=== PATIENT | female | born 1935 | race Caucasian/White ===

== ENCOUNTER 2018-06-30 20:22 | Observation (INO) ==
[2018-06-30] MEDS ORDERED: *HR* HYDROcodone/Acet 5/325 mg TABLET PO ONE (21:01)
[2018-06-30] MEDS ORDERED: Tdap (Boostrix) Vaccine 0.5 ML SYRINGE IM ONE (21:02)
--- NOTE | 2018-06-30 21:16 | Emergency Department Note ---
Disposition Clinical Impression: Knee fracture, left Shoulder pain Qualifiers: Chronicity: acute Laterality: left Qualified Code(s): M25.512 - Pain in left shoulder Knee pain, left Qualifiers: Chronicity: acute Qualified Code(s): M25.562 - Pain in left knee Fall Qualifiers: Encounter type: initial encounter Qualified Code(s): W19.XXXA - Unspecified fall, initial encounter Humerus head fracture Qualifiers: Encounter type: initial encounter Fracture type: closed Laterality: left Qualified Code(s): S42.292A - Other displaced fracture of upper end of left ashvin brittanie, initial encounter for closed fracture Disposition: Admitted As Inpatient Condition: Fair Time of Disposition: 22:48 General Adult HPI - General Chief complaint: ED Fall Stated complaint: Left leg/shoulder Pain Time Seen by Provider: 06/30/18 20:24 Source: family, EMS Mode of arrival: EMS Limitations: no limitations Nursing Notes Reviewed: Yes Vital Signs Reviewed: Yes - History of Present Illness HPI Narrative: 83-year-old female presents for evaluation after mechanical fall. Patient states she fell down a proximally 2 stairs. Patient was outside. Patient denies any LOC. Patient denies any head injury. States that she is complaining of left knee and left shoulder pain. Patient was not able to ambulate following the injury. Denies any chest pain. No abdominal pain. No back or neck pain. No nausea or vomiting. Patient denies being any blood thinners. States she does have a history of coronary artery disease. States she takes it aspirin. Denies any Plavix. Pain Scale: 8 - Related Data Home Medications Medication Instructions Recorded Confirmed Aspirin Enteric Coated [Aspirin EC] 81 mg PO DAILY 04/15/15 06/11/18 Metoprolol [Lopressor] 12.5 mg PO BID 04/15/15 06/11/18 amLODIPine [Norvasc] 2.5 mg PO BID 10/05/16 06/11/18 Previous Rx's Medication Instructions Recorded Ibuprofen [Motrin] 600 mg PO TID PRN #10 tablet 07/15/15 Diphenoxylate/Atropine [Lomotil 1 each PO QID PRN #60 tablet 12/15/16 2.5 mg/0.025 mg] Magic Mouthwash [Magic Mouthwash 10 ml PO QID PRN #240 ml 02/26/17 BLM] Oxygen 1 each .ROUTE AD #1 each 07/16/17 Ondansetron HCl [Zofran] 1 tab PO Q6H PRN #30 tablet 09/27/17 Prochlorperazine Maleate 1 tab PO Q6H PRN #30 tablet 09/27/17 [Compazine] Pembrolizumab [Keytruda] 200 mg IV Q3W #18 vial 01/24/18 Cyanocobalamin (Vitamin B-12) 1,000 mcg PO DAILY #30 tablet 02/26/18 [Vitamin B12] Omeprazole [PriLOSEC] 1 tab PO DAILY #30 cap 02/26/18 Calcium Carbonate/Vitamin D3 1 each PO BID #60 tablet 04/30/18 [Calcium 600 + Vit D Tablet] Hydrocortisone 2.5% CREAM [Cortaid] 1 appl TP BID #1 tube 06/11/18 Allergies Allergy/AdvReac Type Severity Reaction Status Date / Time metronidazole [From Flagyl] Allergy Rash Verified 06/11/18 13:56 All systems ED: reviewed and negative except as stated. Constitutional: Denies: fever Cardiovascular: Denies: chest pain Respiratory: Denies: cough, dyspnea Gastrointestinal: Denies: abdominal pain, nausea, vomiting Past Medical History - Past Medical History Source: patient Medical history: Reports: arthritis, cancer, COPD, coronary artery disease, GERD, hypertension, osteoporosis Surgical history: Reports: angioplasty/stent, colectomy, other Psychiatric history: Reports: no psych history - Social History Smoking Status: Former smoker Smokeless Tobacco Status: No Alcohol use: Reports: none Drug use: Reports: none Physical Exam - General Limitations: no limitations General appearance: alert, in no apparent distress - Head Head exam: atraumatic, normocephalic, normal inspection - Eye Eye exam: Present: normal appearance, PERRL, EOMI - ENT ENT exam: normal exam, normal oropharynx, mucous membranes moist - Neck Neck exam: Present: normal inspection - Chest Chest inspection: Present: normal inspection, symmetric chest wall rise - Respiratory Respiratory exam: Present: normal lung sounds bilaterally. Absent: respiratory distress - Cardiovascular Cardiovascular exam: Present: regular rate, normal rhythm. Absent: systolic murmur - Abdominal Exam Abdominal exam: Present: soft, Non-Tender - Expanded Upper Extremity Exam Shoulder exam: Present: normal inspection, tenderness (Tenderness along the anterior aspect of left shoulder. No ecchymosis. No significant gross deformity. Limited range of motion due to pain.). Absent: ecchymosis, deformity, crepitus Arm exam: Present: normal inspection Elbow exam: Present: normal inspection. Absent: tenderness Forearm/Wrist exam: Present: normal inspection. Absent: tenderness, tenderness over anatomical snuff box Hand exam: Present: normal inspection. Absent: tenderness Vascular exam: Normal: capillary refill, radial pulse - Expanded Lower Extremity Exam Hip/Pelvis exam: Present: normal inspection. Absent: tenderness Upper leg exam: Present: normal inspection Knee exam: Present: tenderness, other (Abrasion over the anterior aspect of the left knee) Ankle exam: Present: normal inspection Neurovascular/Tendon exam: Present: normal capillary refill - Back Exam Back exam: Present: normal inspection - Neurological Exam Neurological exam: Present: alert, oriented X3, CN II-XII intact - Skin Skin exam: Present: warm, dry, intact, normal color Course Course Narrative: Patient seen and examined. Patient appropriate pain control tetanus updated as well as appropriate imaging regarding the fall. - Reevaluation(s) Reevaluation #1: Patient seen and examined. Patient's updated on plan of care. Patient will be admitted to the hospital service with orthopedic consult. Patient's aware of her injuries. Time: 23:22 - Consultations Consultation #1: Discussed the case with Dr. Wong who recommends getting CT of the shoulder and knee and will see the patient tomorrow. Time: 22:46 Vital Signs Temperature 98 F 06/30/18 20:26 Pulse Rate 81 06/30/18 20:26 Respiratory Rate 20 06/30/18 20:26 Blood Pressure 131/68 06/30/18 20:26 O2 Sat by Pulse Oximetry 87 06/30/18 20:26 Temperature 98 F 06/30/18 20:26 Pulse Rate 79 06/30/18 23:12 Respiratory Rate 20 06/30/18 23:12 Blood Pressure 140/91 06/30/18 23:12 O2 Sat by Pulse Oximetry 94 06/30/18 23:12 Oxygen Delivery Oxygen Delivery Nasal Cannula Medical Decision Making - MDM Narrative Medical decision making narrative: Patient presented for concerns of a mechanical fall. During the course of the patient's ED evaluation it was noted patient does have a left humeral head fracture as well as left distal diaphyseal femoral fracture. These injuries were discussed with the orthopedic doctor on-call. Recommended CT imaging of those areas and will be evaluated tomorrow. Patient's tetanus was updated. Given the excessive the patient's injuries appear patient is not appropriate for discharge home. Patient did get basic labs as well as an EKG. Family at bedside agree with current plan of care. - Lab Data Lab results reviewed: Yes I reviewed the patient's lab results. Result diagrams: 06/30/18 22:58 06/30/18 22:58 Lab Results 06/30/18 06/30/18 Range/Units 22:58 22:58 WBC 7.7 (4.3-11.1) K/mcL RBC 4.21 (3.82-4.97) M/mcL Hgb 10.6 L (11.5-15.4) g/dL Hct 34.4 L (35.3-44.9) % MCV 81.7 L (83.0-100.0) fL MCH 25.2 L (28.0-33.3) pg MCHC 30.8 L (31.6-35.5) g/dL RDW 19.4 H (11.5-14.5) % Plt Count 186 (140-400) K/mcL MPV 9.8 (9.4-12.4) fL Immature Gran % 0.3 (0-4) % Seg Neutrophils % 81.7 % Lymphocytes % 9.5 % Monocytes % 6.8 % Eosinophils % 1.4 % Basophils % 0.3 % Neutrophils # 6.3 (1.6-8.9) K/mcL Lymphocytes # 0.7 (0.6-4.6) K/mcL Monocytes # 0.5 (0.0-1.3) K/mcL Eosinophils # 0.1 (0.0-0.6) K/mcL Basophils # 0.0 (0.0-0.2) K/mcL Sodium 138 (136-145) mEq/L Potassium 3.8 (3.5-5.1) mEq/L Chloride 108 H (98-107) mEq/L Carbon Dioxide 21 L (23-29) mEq/L BUN 22 (8-23) mg/dL Creatinine 0.59 L (0.60-1.20) mg/dL Est GFR ( Amer) > 60 (> 60) Est GFR (Non-Af Amer) > 60 (> 60) BUN/Creatinine Ratio 37 H (6-26) Glucose 114 H (70-105) mg/dL Calculated Osmolality 290 (280-300) Calcium 8.9 (8.6-10.3) mg/dL - Radiology Data Radiology results reviewed: Yes I reviewed the patient's radiology results. Shoulder X-Ray 06/30/18 21:00 IMPRESSION: Fracture of the left humeral head without glenohumeral joint dislocation. D/ / Grzegorz Torres / Grzegorz Torres Interpreting Provider: Grzegorz Torres Hip X-Ray 06/30/18 21:01 IMPRESSION: No fracture or the dislocation involving the left hip. D/ / Grzegorz Torres / Grzegorz Torres Interpreting Provider: Grzegorz Torres Knee X-Ray 06/30/18 21:01 IMPRESSION: 1. Acute, nondisplaced distal 3rd femoral diaphysis fracture. Question intra-articular extension of the fracture line. 2. Peripheral vascular disease. 3. Osteopenia. D/ / Juliane Nava MD / Juliane Nava MD Interpreting Provider: Juliane Nava MD - EKG Data EKG #1 EKG attestation: Yes I reviewed and interpreted this EKG. EKG shows normal: sinus rhythm Rate: normal Rhythm: NSR [place]/QRS: left axis deviation Q waves: v1, v2, v3 Interpretation: no acute changes, unchanged when compared to prior tracing (date), nonspecific ST-T wave changes S.B.A.R. - S.B.A.Ayden Situation: Demographics Background: Presenting Complaint Assessment: Vital Signs, Course and respsone to treatment, Patient/Family Expectation Recommendation: Barrier(s) to disposition, Recommendation based on pending studies, treatments, or consults S.B.A.RTereso Report Given to: Dr. Jenny Hurst Repor Time: 23:21 Attestation Statement - Attestation Attestation: I, Rock Lambert, examined this patient and my medical decision-making was reviewed with the BLINDST[employer] HEMMER/PA/Advanced Practice Nurse/Resident Physician. I agree with the documented findings, disposition and treatment plan as described except to the extent set forth below. 83-year-old female presents emergency Department with pain to the left upper extremity left lower extremity. Patient states she was standing on the stairs in the dark when she fell down. Denies chest pain, shortness of breath, palpitations or other presyncopal symptoms. She is uncertain if she had loss consciousness. She has been unable to ambulate set time. Patient has pain to the left humeral head in the left knee with palpation on exam. CT of the head did not show acute fracture or intracranial hemorrhage. X-ray of the left shoulder and the left femur showed fractures of the humeral head and the left femur. Patient will be admitted for further care and evaluation.
[2018-06-30 23:19] LABS: Basophils % 0.3 %; Eosinophils # 0.1 K/mcL (0.0-0.6); Eosinophils % 1.4 %; Hematocrit 34.4 % (35.3-44.9); Hemoglobin 10.6 g/dL (11.5-15.4); Immature Granulocytes % 0.3 % (0-4); Lymphocytes # 0.7 K/mcL (0.6-4.6); Lymphocytes % 9.5 %; Mean Corpuscular HGB Conc 30.8 g/dL (31.6-35.5); Mean Corpuscular Hemoglobin 25.2 pg (28.0-33.3); Mean Corpuscular Volume 81.7 fL (83.0-100.0); Mean Platelet Volume 9.8 fL (9.4-12.4); Monocytes # 0.5 K/mcL (0.0-1.3); Monocytes % 6.8 %; Neutrophils # 6.3 K/mcL (1.6-8.9); Platelet Count 186 K/mcL (140-400); Red Blood Count 4.21 M/mcL (3.82-4.97); Red Cell Distribution Width 19.4 % (11.5-14.5); Segmented Neutrophils % 81.7 %
[2018-06-30 23:40] LABS: BUN/Creatinine Ratio 37 (6-26); Blood Urea Nitrogen 22 mg/dL (8-23); Calcium 8.9 mg/dL (8.6-10.3); Carbon Dioxide 21 mEq/L (23-29); Chloride 108 mEq/L (98-107); Glucose 114 mg/dL (70-105); Osmolality,Calculated 290 (280-300); Potassium 3.8 mEq/L (3.5-5.1); Sodium 138 mEq/L (136-145); eGFR For Non-African Americans > 60 (> 60)
[2018-07-01] MEDS ORDERED: Naloxone 0.4 MG/ML INJ IVP PRN (01:06)
[2018-07-01] MEDS: OXYCODONE Oral CONC 10 MG/0.5 ML ORAL.SYG SL PRN ×4 (01:19→17:09)
--- NOTE | 2018-07-01 06:52 | Orthopedic Consult Note ---
Date of Encounter: 07/01/18 Time of Encounter: 06:51 History of Present Illness HPI: Ms. Kirby is a 83 year old female Admitted with left nondisplaced femur fracture, and left proximal humerus fracture. I reviewed the CT scan as well as x-rays of both injuries. Recommendations for nonoperative treatment based on fracture pattern inpatient H. Patient will be fitted with a left knee brace minimal weightbearing. Left arm sling. Past Med Surg Social Fam HX - Past Medical History Medical history: arthritis, cancer, COPD, coronary artery disease, GERD, hypertension, osteoporosis Additional medical history: COLON CANCER SPREAD TO LIVER, LUNG AND LYMPH NODES Psychiatric history: no psych history - Past Surgical History Surgical History: angioplasty/stent, colectomy, other Additional surgical history: aport placement and removal - Social History Smoking Status: Former smoker Smokeless Tobacco Status: No Alcohol use: none Drug use: none - Family History Father Adopted: No Family Member Ethnicity: Non- Living Status: Cause of : cardiac Hx Family Cardiac Disorders: Yes Hx Family Respiratory Disorders: No Hx Family Cancer: No Hx Family GI Disorders: No Hx Family Endocrine Disorder: No Hx Family Neuromuscular Disorders: No Hx Family Neurologic Disorders: No Hx Family HEENT Disorders: No Hx Family Autoimmune Disorders: No Medications and Allergies Aspirin Enteric Coated [Aspirin EC] 81 mg PO DAILY 04/15/15 [History] Metoprolol [Lopressor] 12.5 mg PO BID 04/15/15 [History] Ibuprofen [Motrin] 600 mg PO TID PRN #10 tablet 07/15/15 [Rx] amLODIPine [Norvasc] 2.5 mg PO BID 10/05/16 [History] Diphenoxylate/Atropine [Lomotil 2.5 mg/0.025 mg] 1 each PO QID PRN #60 tablet 12/15/16 [Rx] Magic Mouthwash [Magic Mouthwash BLM] 10 ml PO QID PRN #240 ml 02/26/17 [Rx] Oxygen 1 each .ROUTE AD #1 each 07/16/17 [Rx] Ondansetron HCl [Zofran] 1 tab PO Q6H PRN #30 tablet 09/27/17 [Rx] Prochlorperazine Maleate [Compazine] 1 tab PO Q6H PRN #30 tablet 09/27/17 [Rx] Pembrolizumab [Keytruda] 200 mg IV Q3W #18 vial 01/24/18 [Rx] Cyanocobalamin (Vitamin B-12) [Vitamin B12] 1,000 mcg PO DAILY #30 tablet 02/26/18 [Rx] Calcium Carbonate/Vitamin D3 [Calcium 600 + Vit D Tablet] 1 each PO BID #60 tablet 04/30/18 [Rx] Hydrocortisone 2.5% CREAM [Cortaid] 1 appl TP HS 07/01/18 [History] Allergy/AdvReac Type Severity Reaction Status Date / Time metronidazole [From Flagyl] Allergy Rash Verified 06/11/18 13:56 All Systems Reviewed: The remainder of the systems were reviewed and are negative Physical Exam - Constitutional Vitals: Temp Pulse Resp BP Pulse Ox 98.5 F 75 18 136/69 94 07/01/18 04:02 07/01/18 04:02 07/01/18 04:02 07/01/18 04:02 07/01/18 04:02 Results - Labs Result Diagrams: 06/30/18 22:58 06/30/18 22:58 Labs: Abnormal lab results Hgb 10.6 g/dL (11.5-15.4) L 06/30/18 22:58 Hct 34.4 % (35.3-44.9) L 06/30/18 22:58 MCV 81.7 fL (83.0-100.0) L 06/30/18 22:58 MCH 25.2 pg (28.0-33.3) L 06/30/18 22:58 MCHC 30.8 g/dL (31.6-35.5) L 06/30/18 22:58 RDW 19.4 % (11.5-14.5) H 06/30/18 22:58 Chloride 108 mEq/L (98-107) H 06/30/18 22:58 Carbon Dioxide 21 mEq/L (23-29) L 06/30/18 22:58 Creatinine 0.59 mg/dL (0.60-1.20) L 06/30/18 22:58 BUN/Creatinine Ratio 37 (6-26) H 06/30/18 22:58 Glucose 114 mg/dL (70-105) H 06/30/18 22:58 H & H 10/21/18 Range/Units 22:58 Hgb 10.6 L (11.5-15.4) g/dL Hct 34.4 L (35.3-44.9) % All other labs normal. Consult Discharge Plan - Plan Referrals: Blayne De Leon DO [Primary Care Provider] -
--- NOTE | 2018-07-01 08:11 | Internal Med History&Physical ---
Date of Encounter: 07/01/18 Time of Encounter: 03:15 Internal Medicine - H&P: HPI Chief complaint: Shoulder and femur fracture Admitted From: Emergency Dept History of present illness: Ms. Kirby is a 83 year old female Patient had a mechanical fall while going up the steps of her porch in the dark. Fell back landing on her left side. was present at the time, however he did not witness the fall as he was parking the car in the garage. He found the patient soon after the event and tried to help her up. EMS was called to retrieve patient as she had too much pain with movement. In the ER CT of the humerus showed comminuted minimally displaced fractures of the proximal left humerus with fracture lines involving the anatomic neck, surgical neck and greater tuberosity of the left humerus. CT of the femur showed acute traumatic non-displaced fracture of the distal left femoral diaphysis with intra-articular extension into the lateral femoral condylar articular surface and femoral trochlear groove. Patient was admitted for further management and orthopedic consultation. Upon my assessment patient was sleeping in the bed. She denies pain, as long as she does not move much. She also denies nausea, vomiting, diarrhea and con stipation. No chest pain nor abdominal pain. 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 Past Med Surg Social Fam HX - Past Medical History Medical history: arthritis, cancer, COPD, coronary artery disease, GERD, hypertension, osteoporosis Additional medical history: COLON CANCER SPREAD TO LIVER, LUNG AND LYMPH NODES Psychiatric history: no psych history - Past Surgical History Surgical History: angioplasty/stent, colectomy, other Additional surgical history: aport placement and removal - Social History Smoking Status: Former smoker Smokeless Tobacco Status: No Alcohol use: none Drug use: none - Family History Father Adopted: No Family Member Ethnicity: Non- Living Status: Cause of : cardiac Hx Family Cardiac Disorders: Yes Hx Family Respiratory Disorders: No Hx Family Cancer: No Hx Family GI Disorders: No Hx Family Endocrine Disorder: No Hx Family Neuromuscular Disorders: No Hx Family Neurologic Disorders: No Hx Family HEENT Disorders: No Hx Family Autoimmune Disorders: No Internal Medicine - H&P: Meds Aspirin Enteric Coated [Aspirin EC] 81 mg PO DAILY 04/15/15 [History] Diphenoxylate/Atropine [Lomotil 2.5 mg/0.025 mg] 1 each PO QID PRN #60 tablet 12/15/16 [Rx] Magic Mouthwash [Magic Mouthwash BLM] 10 ml PO QID PRN #240 ml 02/26/17 [Rx] Oxygen 1 each .ROUTE AD #1 each 07/16/17 [Rx] Ondansetron HCl [Zofran] 1 tab PO Q6H PRN #30 tablet 09/27/17 [Rx] Prochlorperazine Maleate [Compazine] 1 tab PO Q6H PRN #30 tablet 09/27/17 [Rx] Pembrolizumab [Keytruda] 200 mg IV Q3W #18 vial 01/24/18 [Rx] Cyanocobalamin (Vitamin B-12) [Vitamin B12] 1,000 mcg PO DAILY #30 tablet 02/26/18 [Rx] Calcium Carbonate/Vitamin D3 [Calcium 600 + Vit D Tablet] 1 each PO BID #60 tablet 04/30/18 [Rx] Hydrocortisone 2.5% CREAM [Cortaid] 1 appl TP HS 07/01/18 [History] Metoprolol [Lopressor] 12.5 mg PO BID 07/01/18 [History] Tiotropium [place] [Spiriva Respimat] 2 puff PO DAILY 07/01/18 [History] amLODIPine [Norvasc] 5 mg PO BID 07/01/18 [History] Allergy/AdvReac Type Severity Reaction Status Date / Time metronidazole [From Flagyl] Allergy Rash Verified 06/11/18 13:56 All Systems PM: A 10-system review of systems was performed and is negative for pertinent findings except as documented above in the HPI. - Constitutional Vitals: Temp Pulse Resp BP Pulse Ox 97.5 F L 84 16 147/76 90 07/01/18 07:04 07/01/18 07:04 07/01/18 07:04 07/01/18 07:04 07/01/18 07:04 General appearance: Present: cooperative, mild distress, A&O X 3, pleasant, answers questions appropriately Exam: As above - Head Additional comments: Nose wound with bandage from recent surgery. - Eye Eye exam: Present: EOMI, normal appearance - Respiratory Respiratory exam: Present: CTAB. Absent: decreased breath sounds, wheezes - Cardiovascular Cardiovascular exam: Present: RRR. Absent: diastolic murmur, systolic murmur - GI/Abdominal GI/Abdominal exam: Present: normal bowel sounds, soft. Absent: tenderness - Extremities Exam Extremities exam: Present: tenderness, warm, radial pulses palpable and symmetrical. Absent: calf tenderness, pedal edema Additional comments: Pain at left shoulder and left knee secondary to fractures as described above. - Neurological Exam Neurological exam: Present: no focal deficits, strengths equal and symetr throughout. Absent: motor sensory deficit, facial droop, speech deficit - Skin Skin exam: Present: dry, normal color, warm Internal Med - H&P Results - Labs CBC & Chem 7: 06/30/18 22:58 06/30/18 22:58 Labs: Short CBC 06/30/18 Range/Units 22:58 WBC 7.7 (4.3-11.1) K/mcL Hgb 10.6 L (11.5-15.4) g/dL Hct 34.4 L (35.3-44.9) % Plt Count 186 (140-400) K/mcL Neutrophils # 6.3 (1.6-8.9) K/mcL BMP 06/30/18 22:58 Sodium 138 Potassium 3.8 Chloride 108 H Carbon Dioxide 21 L BUN 22 Creatinine 0.59 L Glucose 114 H Calcium 8.9 - Impressions ITS Impressions Shoulder X-Ray 06/30/18 21:00 IMPRESSION: Fracture of the left humeral head without glenohumeral joint dislocation. D/ / Grzegorz Torres / Grzegorz Torres Interpreting Provider: Grzegorz Torres Hip X-Ray 06/30/18 21:01 IMPRESSION: No fracture or the dislocation involving the left hip. D/ / Grzegorz Torres / Grzegorz Torres Interpreting Provider: Grzegorz Torres Knee X-Ray 06/30/18 21:01 IMPRESSION: 1. Acute, nondisplaced distal 3rd femoral diaphysis fracture. Question intra-articular extension of the fracture line. 2. Peripheral vascular disease. 3. Osteopenia. D/ / Juliane Nava MD / Juliane Nava MD Interpreting Provider: Juliane Nava MD Knee CT 07/01/18 00:00 IMPRESSION: Acute traumatic nondisplaced fracture of the distal left femoral diaphysis with intra-articular extension into the lateral femoral condylar articular surface and femoral trochlear groove. Associated lipohemarthrosis. D/ / 07/01/2018 07:29:30 Abdelrahman Garza MD / violetta Interpreting Provider: Abdelrahman Garza MD Shoulder CT 07/01/18 00:00 IMPRESSION: Acute traumatic comminuted minimally displaced fractures of the proximal left humerus with fracture lines involving the anatomic neck, surgical neck and greater tuberosity of the left humerus. Associated glenohumeral joint hemarthrosis. A 7 mm left upper lobe solid noncalcified pulmonary nodule as seen on prior chest CT from 05/15/2018. This is consistent with known pulmonary metastatic disease. D/ / 07/01/2018 07:31:21 Abdelrahman Garza MD / Char Pantoja Interpreting Provider: Abdelrahman Garza MD - Assessment and plan (1) Knee fracture, left Current Visit: Yes Status: Acute Assessment and plan: As seen on imaging. Pain controlled. Orthopedic surgery consulted. (2) Humerus head fracture Current Visit: Yes Status: Acute Assessment and plan: As seen on imaging, orthopedic surgery consulted. Qualifiers: Encounter type: initial encounter Fracture type: closed Laterality: left Qualified Code(s): S42.292A - Other displaced fracture of upper end of left humerus, initial encounter for closed fracture (3) Shoulder pain Current Visit: Yes Status: Acute Assessment and plan: Currently controlled Continue to monitor PRN pain medications. Qualifiers: Chronicity: acute Laterality: left Qualified Code(s): M25.512 - Pain in left shoulder (4) Knee pain, left Current Visit: Yes Status: Acute Assessment and plan: Secondary to fracture, currently controlled. PRN pain medication. Qualifiers: Chronicity: acute Qualified Code(s): M25.562 - Pain in left knee (5) Fall Current Visit: Yes Status: Acute Assessment and plan: Mechanical fall at home, resulting in above fractures. Qualifiers: Encounter type: initial encounter Qualified Code(s): W19.XXXA - Unspecified fall, initial encounter (6) DNR (do not resuscitate) Current Visit: No Status: Acute Assessment and plan: Patient states that she would be ok with chest compressions, but only to appease her . She did not want to be intubated however. - Time Spent With Patient Total time spent is greater than 50% in coordination of care (as documented) at patient's floor/unit and/or counseling patient: Greater than 35 minutes
[2018-07-01] MEDS ORDERED: Ondansetron ODT 4 MG TAB.RAPDIS PO PRN (10:17)
--- NOTE | 2018-07-01 10:27 | Internal Med Progress Note ---
Hospitalist Progress Note - Encounter Date of Encounter: 07/01/18 Time of Encounter: 10:26 - Subjective Interval History: Patient with history of COPD, CAD, patient was admitted following mechanical fall where she sustained left humerus and left femur fracture patient was seen by orthopedic and there is no surgical intervention plan she had braces put into her left leg and will continue on pain control and resume home medication patient says have pain is in good control not having any chest pain no shortness of breath. - Exam Vitals: Temp Pulse Resp BP Pulse Ox 97.5 F L 84 16 147/76 90 07/01/18 07:04 07/01/18 07:04 07/01/18 07:04 07/01/18 07:04 07/01/18 07:04 Exam: As above - Assessment and Plan (1) CAD (coronary artery disease) Current Visit: Yes Status: Acute Assessment and Plan: Patient not having any chest pain (2) Shoulder pain Current Visit: Yes Status: Acute Assessment and Plan: From humeral fracture pain is now controlled (3) Knee pain, left Current Visit: Yes Status: Acute Assessment and Plan: From the femur fracture pain is well controlled just has some braces put in to stabilize the fracture (4) Humerus head fracture Current Visit: Yes Status: Acute Assessment and Plan: Patient seen by orthopedic and no surgical intervention planned (5) Knee fracture, left Current Visit: Yes Status: Acute Assessment and Plan: Conservative treatment (6) COPD (chronic obstructive pulmonary disease) Current Visit: No Status: Chronic Assessment and Plan: No active wheezing will continue on home medication - Time Spent with Patient Total time spent is greater than 50% in coordination of care (as documented) at patient's floor/unit and/or counseling patient: Internal Medicine: Result - Labs CBC & Chem 7: 06/30/18 22:58 06/30/18 22:58 Labs: Short CBC 06/30/18 Range/Units 22:58 WBC 7.7 (4.3-11.1) K/mcL Hgb 10.6 L (11.5-15.4) g/dL Hct 34.4 L (35.3-44.9) % Plt Count 186 (140-400) K/mcL Neutrophils # 6.3 (1.6-8.9) K/mcL BMP 06/30/18 22:58 Sodium 138 Potassium 3.8 Chloride 108 H Carbon Dioxide 21 L BUN 22 Creatinine 0.59 L Glucose 114 H Calcium 8.9 - Impressions Impressions Shoulder X-Ray 06/30/18 21:00 IMPRESSION: Fracture of the left humeral head without glenohumeral joint dislocation. D/ / Grzegorz Torres / Grzegorz Torres Interpreting Provider: Grzegorz Torres Hip X-Ray 06/30/18 21:01 IMPRESSION: No fracture or the dislocation involving the left hip. D/ / Grzegorz Torres / Grzegorz Torres Interpreting Provider: Grzegorz Torres Knee X-Ray 06/30/18 21:01 IMPRESSION: 1. Acute, nondisplaced distal 3rd femoral diaphysis fracture. Question intra-articular extension of the fracture line. 2. Peripheral vascular disease. 3. Osteopenia. D/ / Juliane Nava MD / Juliane Nava MD Interpreting Provider: Juliane Nava MD Knee CT 07/01/18 00:00 IMPRESSION: Acute traumatic nondisplaced fracture of the distal left femoral diaphysis with intra-articular extension into the lateral femoral condylar articular surface and femoral trochlear groove. Associated lipohemarthrosis. D/ / 07/01/2018 07:29:30 Abdelrahman Garza MD / violetta Interpreting Provider: Abdelrahman Garza MD Shoulder CT 07/01/18 00:00 IMPRESSION: Acute traumatic comminuted minimally displaced fractures of the proximal left humerus with fracture lines involving the anatomic neck, surgical neck and greater tuberosity of the left humerus. Associated glenohumeral joint hemarthrosis. A 7 mm left upper lobe solid noncalcified pulmonary nodule as seen on prior chest CT from 05/15/2018. This is consistent with known pulmonary metastatic disease. D/ 07/01/2018 07:31:21 Abdelrahman Garza MD / Char Pantoja Interpreting Provider: Abdelrahman Garza MD Consult Discharge Plan - Plan Referrals: Blayne De Leon DO [Primary Care Provider] - (1) CAD (coronary artery disease) Qualifiers: Coronary Disease-Associated Artery/Lesion type: [place] artery [place] vs. transplanted heart: [place] heart Associated angina: without angina Qualified Code(s): I25.10 - Atherosclerotic heart disease of [place] coronary artery without angina pectoris (2) Shoulder pain Qualifiers: Chronicity: acute Laterality: left Qualified Code(s): M25.512 - Pain in left shoulder (3) Knee pain, left Qualifiers: Chronicity: acute Qualified Code(s): M25.562 - Pain in left knee (4) Humerus head fracture Qualifiers: Encounter type: initial encounter Fracture type: closed Laterality: left Qualified Code(s): S42.292A - Other displaced fracture of upper end of left humerus, initial encounter for closed fracture
[2018-07-01] MEDS ORDERED: NON-FORMULARY MEDICATION 1 EACH EACH (Oxygen [Oxygen] 1 EACH) SCH (10:30)
[2018-07-01] MEDS: Tiotropium 18 MCG inhalation IH SCH (16:18)
[2018-07-01] MEDS: amLODIPine 5 MG TABLET PO SCH (20:48)
[2018-07-02] MEDS: OXYCODONE Oral CONC 10 MG/0.5 ML ORAL.SYG SL PRN ×2 (00:59→09:34)
[2018-07-02 05:25] LABS: Hematocrit 30.7 % (35.3-44.9); Hemoglobin 9.3 g/dL (11.5-15.4); Mean Corpuscular HGB Conc 30.3 g/dL (31.6-35.5); Mean Corpuscular Volume 82.5 fL (83.0-100.0); Mean Platelet Volume 9.3 fL (9.4-12.4); Platelet Count 164 K/mcL (140-400); Red Blood Count 3.72 M/mcL (3.82-4.97); Red Cell Distribution Width 18.8 % (11.5-14.5)
[2018-07-02 05:30] LABS: INR 1.1
[2018-07-02 05:42] LABS: BUN/Creatinine Ratio 46 (6-26); Blood Urea Nitrogen 22 mg/dL (8-23); Calcium 8.8 mg/dL (8.6-10.3); Carbon Dioxide 24 mEq/L (23-29); Chloride 103 mEq/L (98-107); Glucose 105 mg/dL (70-105); Osmolality,Calculated 284 (280-300); Sodium 135 mEq/L (136-145); eGFR For Non-African Americans > 60 (> 60)
[2018-07-02] MEDS: *HR* Enoxaparin 40 MG/0.4 ML SYRINGE SQ SCH (06:21)
[2018-07-02] MEDS: Tiotropium 18 MCG inhalation IH SCH (08:04)
[2018-07-02] MEDS: Cholecalciferol (D-3) 1,000 UNIT TABLET PO SCH (09:33)
[2018-07-02] MEDS: Aspirin Enteric Coated 81 MG Tablet PO SCH (09:33)
[2018-07-02] MEDS: Cyanocobalamin (B-12) 1,000 MCG TABLET PO SCH (09:33)
[2018-07-02] MEDS: amLODIPine 5 MG TABLET PO SCH ×2 (09:34→19:29)
--- NOTE | 2018-07-02 15:10 | Internal Med Progress Note ---
Hospitalist Progress Note - Encounter Date of Encounter: 07/02/18 Time of Encounter: 11:30 - Subjective Interval History: Patient states that her pain over the left shoulder and leg is tolerable. No fever/chills, N/V, SOB, cough, or chest pain. - Exam Vitals: Temp Pulse Resp BP Pulse Ox 97.8 F 84 16 143/67 94 07/02/18 04:56 07/02/18 04:56 07/02/18 08:04 07/02/18 04:56 07/02/18 08:04 Exam: General: Alert and oriented, not in acute distress. Cardiovascular:Normal S1 & S2, No JVD. Pulse regular. Lungs: clear to auscultation, no wheezes/rales Abdomen:Soft, non-tender, no rigidity. Extremities: L arm in sling and L knee brace as well. Neurovascularly intact distally Neurological:Normal cognition and motor skills. Non-focal - Assessment and Plan (1) Fall Current Visit: Yes Status: Acute Assessment and Plan: likely due to mechanical fall, resulting in fractures as below PT/OT (2) Femur fracture, left Current Visit: Yes Status: Acute Assessment and Plan: non-surgical per ortho PT/OT SW for placement pain mx (3) Humerus head fracture Current Visit: Yes Status: Acute Assessment and Plan: Nonsurgical per ortho PT/OT, SW for placement L arm in sling pain mx (4) CAD (coronary artery disease) Current Visit: Yes Status: Acute Assessment and Plan: No anginal symptoms resume home meds (5) COPD (chronic obstructive pulmonary disease) Current Visit: No Status: Chronic Assessment and Plan: requires 2-3L of O2 intermittently but reports that her O2 readings have been in mid 80s for the last few months does not appear to be in exacerbation, she will probably need continuous O2 rather than intermittently advised the pt to use O2 continuously at home and follow up outpatient resume home inhalers (6) Metastatic colon cancer to liver Current Visit: No Status: Chronic Assessment and Plan: On Keytruda as an outpatient (7) Severe protein-calorie malnutrition Current Visit: Yes Status: Acute Assessment and Plan: related to the above dx of metastatic cancer nutrition consult DVT Prophylaxis: SQ lovenox - Time Spent with Patient Total time spent is greater than 50% in coordination of care (as documented) at patient's floor/unit and/or counseling patient: Plan of Care Discussed with: patient Internal Medicine: Result - Labs CBC & Chem 7: 07/02/18 05:04 07/02/18 05:04 Labs: Short CBC 07/02/18 Range/Units 05:04 WBC 7.7 (4.3-11.1) K/mcL Hgb 9.3 L (11.5-15.4) g/dL Hct 30.7 L (35.3-44.9) % Plt Count 164 (140-400) K/mcL BMP 07/02/18 05:04 Sodium 135 L Potassium 4.0 Chloride 103 Carbon Dioxide 24 BUN 22 Creatinine 0.48 L Glucose 105 Calcium 8.8 - ABG Interpretation ABG results: PT/INR, D-dimer PT 12.0 Seconds (9.4-12.1) 07/02/18 05:04 Consult Discharge Plan - Plan Referrals: Blayne De Leon DO [Primary Care Provider] - (1) Fall Qualifiers: Encounter type: initial encounter Qualified Code(s): W19.XXXA - Unspecified fall, initial encounter (2) Femur fracture, left Qualifiers: Encounter type: subsequent encounter Femur location: distal Fracture type: closed Fracture morphology: unspecified fracture morphology Fracture healing: with delayed healing Qualified Code(s): S72.402G - Unspecified fracture of lowe r end of left femur, subsequent encounter for closed fracture with delayed healing (3) Humerus head fracture Qualifiers: Encounter type: subsequent encounter Fracture type: closed Laterality: left (4) CAD (coronary artery disease) Qualifiers: Coronary Disease-Associated Artery/Lesion type: [place] artery [place] vs. transplanted heart: [place] heart Associated angina: without angina Qualified Code(s): I25.10 - Atherosclerotic heart disease of [place] coronary artery without angina pectoris (5) COPD (chronic obstructive pulmonary disease) Qualifiers: COPD type: unspecified COPD Qualified Code(s): J44.9 - Chronic obstructive pulmonary disease, unspecified
[2018-07-02] MEDS ORDERED: Acetaminophen 325 MG TABLET PO PRN (15:13)
[2018-07-02] MEDS ORDERED: *HR* HYDROcodone/Acet 5/325 mg TABLET PO PRN (15:13)
[2018-07-02] MEDS: *HR* OxyCODONE Immed Rel 5 MG TABLET PO PRN (17:34)
[2018-07-03] MEDS: *HR* Enoxaparin 40 MG/0.4 ML SYRINGE SQ SCH (06:37)
[2018-07-03] MEDS: Tiotropium 18 MCG inhalation IH SCH (08:41)
--- NOTE | 2018-07-03 09:45 | Discharge Summary ---
- NOTES TO OUTPATIENT PROVIDER Notes to Outpatient Provider: Patient was admitted after a mechanical fall and sustained left humerus and femur fracture. Deemed non-surgical by orthopedics and was placed on L arm sling for L humerus fracture and L knee brace for L distal femur fracture. She will be discharged to SNF for further rehab. Date of Encounter: 07/03/18 Time of Encounter: 08:15 - Discharge Diagnosis (1) Fall Priority: Primary Status: Acute Qualifiers: Encounter type: initial encounter Qualified Code(s): W19.XXXA - Unspecified fall, initial encounter (2) Femur fracture, left Priority: Secondary Status: Acute Qualifiers: Encounter type: subsequent encounter Femur location: distal Fracture type: closed Fracture morphology: unspecified fracture morphology Fracture healing: with delayed healing Qualified Code(s): S72.402G - Unspecified fracture of lower end of left femur, subsequent encounter for closed fracture with delayed healing (3) Humerus head fracture Priority: Secondary Status: Acute Qualifiers: Encounter type: subsequent encounter Fracture type: closed Laterality: left Fracture healing: with routine healing Qualified Code(s): S42.292D - Other displaced fracture of upper end of left humerus, subsequent encounter for fracture with routine healing (4) CAD (coronary artery disease) Priority: Secondary Status: Acute Qualifiers: Coronary Disease-Associated Artery/Lesion type: [place] artery [place] vs. transplanted heart: [place] heart Associated angina: without angina Qualified Code(s): I25.10 - Atherosclerotic heart disease of [place] coronary artery without angina pectoris (5) COPD (chronic obstructive pulmonary disease) Priority: Secondary Status: Chronic Qualifiers: COPD type: unspecified COPD Qualified Code(s): J44.9 - Chronic obstructive pulmonary disease, unspecified (6) Metastatic colon cancer to liver Priority: Secondary Status: Chronic (7) Severe protein-calorie malnutrition Priority: Secondary Status: Acute Hospital course: Ms. Kirby is a 83 year old female with past history of CAD, metastatic colon cancer, COPD on 2 L oxygen, was admitted after a mechanical fall when she sustained left humerus and femur fracture. Deemed non-surgical by orthopedics and was placed on L arm sling for L humerus fracture and L knee brace for L distal femur fracture. She will be discharged to SNF for further rehab. Discharge discussed with: patient, family, case management - Time Spent with Patient Total time spent providing and/or coordinating discharge services: Greater than 30 minutes - Discharge Medications Prescriptions: HYDROcodone/Acet 5/325 mg [[place] 5-325 mg] 1 tab PO Q6HR PRN 4 Days #12 tablet PRN Reason: Pain Cholecalciferol (D-3) [Vitamin D] 1,000 unit PO DAILY #30 tablet Home Medications: Aspirin Enteric Coated [Aspirin EC] 81 mg PO DAILY 04/15/15 [History] Oxygen 1 each .ROUTE AD #1 each 07/16/17 [Rx] Ondansetron HCl [Zofran] 1 tab PO Q6H PRN #30 tablet 09/27/17 [Rx] Prochlorperazine Maleate [Compazine] 1 tab PO Q6H PRN #30 tablet 09/27/17 [Rx] Pembrolizumab [Keytruda] 200 mg IV Q3W #18 vial 01/24/18 [Rx] Cyanocobalamin (Vitamin B-12) [Vitamin B12] 1,000 mcg PO DAILY #30 tablet 02/26/18 [Rx] Calcium Carbonate/Vitamin D3 [Calcium 600 + Vit D Tablet] 1 each PO BID #60 tablet 04/30/18 [Rx] Hydrocortisone 2.5% CREAM [Cortaid] 1 appl TP HS 07/01/18 [History] Metoprolol [Lopressor] 12.5 mg PO BID 07/01/18 [History] Tiotropium [place] [Spiriva Respimat] 2 puff PO DAILY 07/01/18 [History] amLODIPine [Norvasc] 5 mg PO BID 07/01/18 [History] Cholecalciferol (D-3) [Vitamin D] 1,000 unit PO DAILY #30 tablet 07/03/18 [Rx] HYDROcodone/Acet 5/325 mg [[place] 5-325 mg] 1 tab PO Q6HR PRN 4 Days #12 tablet 07/03/18 [Rx] Allergies/Adverse Reactions: Allergy/AdvReac Type Severity Reaction Status Date / Time metronidazole [From Flagyl] Allergy Rash Verified 06/11/18 13:56 Date of admission: 06/30/18 23:31 Primary care physician: Blayne De Leon Consults: 06/30/18 22:45 Consult to Orthopedic Surgery [CONS] Stat Consulting Provider: Orthopedics [facility] Reason for Consult: Humerus and knee fx Call Completed: Yes 07/01/18 01:05 Consult to Nutrition [CONS] Routine Comment: Consulting Provider: NUTRITION Reason for Dietary Consult: MST Score 07/01/18 10:24 Consult to Occupational Therapy [CONS] Routine Comment: Evaluate, develop and implement POC Reason for Consult: EVAL AND TREAT Does patient have active BEDREST order?: No Is patient medically & hemodynamically stable?: Yes Consult to Physical Therapy [CONS] Routine Comment: Evaluate, develop and implement POC Reason for Consult: EVAL AND TREAT Does patient have active BEDREST order?: No Is patient medically & hemodynamically stable?: Yes Consult to Cleater [CONS] Routine Reason for SW Consult: POSSIBLE NEED FOR ECF - Constitutional Vitals: Temp Pulse Resp BP Pulse Ox 98 F 76 18 136/78 95 07/03/18 06:29 07/03/18 06:29 07/03/18 06:29 07/03/18 06:29 07/03/18 07:38 General appearance: Present: cooperative, mild distress, A&O X 3, pleasant, answers questions appropriately Exam: General: Alert and oriented, not in acute distress. Cardiovascular:Normal S1 & S2, No JVD. Pulse regular. Lungs: clear to auscultation, no wheezes/rales Abdomen:Soft, non-tender, no rigidity. Extremities: L arm in sling and L knee brace as well. Neurovascularly intact distally Neurological:Normal cognition and motor skills. Non-focal - Patient Status Disposition: Transfer SNF Condition: Fair Overall status at discharge: patient is progressing back to baseline - Discharge Instructions Instructions: Fall Prevention (DC), Arm Fracture in Adults (DC) Follow Up With: Blayne De Leon DO [Primary Care Provider] - Bob Wong MD [Partnered Physician] - - Diet and Activity Activity: as per physical therapy Diet: low fat, low cholesterol
--- NOTE | 2018-07-03 09:49 | Physician Discharge Referral ---
ExtendedCare Referral Info Institutional Level of Care: Skilled - Diagnosis (1) Fall Priority: Primary Status: Acute (2) Femur fracture, left Priority: Secondary Status: Acute (3) Humerus head fracture Priority: Secondary Status: Acute (4) CAD (coronary artery disease) Priority: Secondary Status: Acute (5) COPD (chronic obstructive pulmonary disease) Priority: Secondary Status: Chronic (6) Metastatic colon cancer to liver Priority: Secondary Status: Chronic (7) Severe protein-calorie malnutrition Priority: Secondary Status: Acute Prognosis: Fair - Transfer Medications Prescriptions: HYDROcodone/Acet 5/325 mg [[place] 5-325 mg] 1 tab PO Q6HR PRN 4 Days #12 tablet PRN Reason: Pain Cholecalciferol (D-3) [Vitamin D] 1,000 unit PO DAILY #30 tablet Home Medications: Aspirin Enteric Coated [Aspirin EC] 81 mg PO DAILY 04/15/15 [History] Oxygen 1 each .ROUTE AD #1 each 07/16/17 [Rx] Ondansetron HCl [Zofran] 1 tab PO Q6H PRN #30 tablet 09/27/17 [Rx] Prochlorperazine Maleate [Compazine] 1 tab PO Q6H PRN #30 tablet 09/27/17 [Rx] Pembrolizumab [Keytruda] 200 mg IV Q3W #18 vial 01/24/18 [Rx] Cyanocobalamin (Vitamin B-12) [Vitamin B12] 1,000 mcg PO DAILY #30 tablet 02/26/18 [Rx] Calcium Carbonate/Vitamin D3 [Calcium 600 + Vit D Tablet] 1 each PO BID #60 tablet 04/30/18 [Rx] Hydrocortisone 2.5% CREAM [Cortaid] 1 appl TP HS 07/01/18 [History] Metoprolol [Lopressor] 12.5 mg PO BID 07/01/18 [History] Tiotropium [place] [Spiriva Respimat] 2 puff PO DAILY 07/01/18 [History] amLODIPine [Norvasc] 5 mg PO BID 07/01/18 [History] Cholecalciferol (D-3) [Vitamin D] 1,000 unit PO DAILY #30 tablet 07/03/18 [Rx] HYDROcodone/Acet 5/325 mg [[place] 5-325 mg] 1 tab PO Q6HR PRN 4 Days #12 tablet 07/03/18 [Rx] Allergies/Adverse Reactions: Allergy/AdvReac Type Severity Reaction Status Date / Time metronidazole [From Flagyl] Allergy Rash Verified 06/11/18 13:56 - Respiratory Orders Oxygen / L per min (2L) Smoking Cessation: Smoking cessation has been advised. For more information, call the [place] Tobacco Quit Line at 9-126-EUVK-NOW. - Advance Directives Code Status: DNR-Arrest/Don't Intubate - Rehabiliation Orders Rehab Orders: Evaluation for Physical Therapy, Evaluation for Occupational Therapy - Diet Orders Regular CERTIFICATION: I certify that the transfer of the above named patient to an Extended Care Facility is necessary for the continuing treatment of the diagnosis listed. The above information is true and accurate reflection of patient's current condition. Confidential - Redisclosure prohibited without a patient's written consent.
[2018-07-03] MEDS: amLODIPine 5 MG TABLET PO SCH (09:53)
[2018-07-03] MEDS: Cyanocobalamin (B-12) 1,000 MCG TABLET PO SCH (09:53)
[2018-07-03] MEDS: Aspirin Enteric Coated 81 MG Tablet PO SCH (09:53)
[2018-07-03] MEDS: Cholecalciferol (D-3) 1,000 UNIT TABLET PO SCH (09:53)
[2018-07-03 09:56] VITALS: BP 129/68
[2018-07-03] MEDS: *HR* OxyCODONE Immed Rel 5 MG TABLET PO PRN (10:45)
--- NOTE | 2018-07-05 15:44 | Electrocardiograph Report ---
[address] [place], [place] [address] Test Date: 2018-06-30 Pat Name: [facility] Department: [id number] Room: [facility] Gender: F Data Analysis Assistant: : [id number] Requested By: Scooter Donohue Order Number: [id number] Reading MD: Artem Waite Measurements Intervals [place] Rate: 77 P: 53 MO: 156 QRS: -23 QRSD: 93 T: 21 QT: 426 QTc: 483 Interpretive Statements Sinus rhythm Ventricular premature complex Leftward axis Possible anteroseptal infarct, age undetermined Nonspecific ST-T changes Electronically Signed On 07-05-2018 15:43:12 EDT by Artem Waite
== END 2018-07-03 11:06 ==
LOC: EMEROOARM 20:22 → 3NENU 20:22 → SUATTDRO 23:31 → 3NENU 07-01 00:19
PROVIDERS: ADMIT Family Medicine; ATTEND Internal Medicine

== ENCOUNTER 2019-01-22 12:27 | Inpatient (IN) ==
[2019-01-22] MEDS ORDERED: *HR* FentaNYL (PF) 100 MCG/2 ML VIAL IVP ONE ×2 (12:37→15:35)
--- NOTE | 2019-01-22 12:39 | Emergency Department Note ---
Disposition Clinical Impression: Hip fracture Disposition: Admitted As Inpatient Condition: Good Fall HPI - General Stated Complaint: Fall, left hip pain Time Seen by Provider: 01/22/19 12:34 Source: patient, family, EMS Mode of arrival: EMS Limitations: no limitations Nursing Notes Reviewed: Yes Vital Signs Reviewed: Yes - History of Present Illness HPI Narrative: 83-year-old female past medical history of colon cancer and left femur/humerus fracture after a fall in [address] Wong. Patient experienced mechanical fall at home today onto her left hip, brought in via EMS. Patient denies striking her head, or any other injury during the fall, she did not lose consciousness, no nausea or vomiting counter during or after the incident. Patient is complaining of severe left groin pain 10 out of 10 on the pain scale without radiation. Onset (ago): hour(s) Fall From: standing Place Fall Occurred: home Loss of Consciousness: none Prolonged Down Time?: no Symptoms Prior to Fall: none Context: tripped/slipped Location of injury: hip, pelvis Severity: severe Severity scale (1-10): 10 Associated symptoms (after fall): Reports: denies - Related Data Home Medications Medication Instructions Recorded Confirmed Aspirin Enteric Coated [Aspirin EC] 81 mg PO DAILY 04/15/15 01/22/19 Tiotropium [place] [Spiriva 2 puff PO DAILY 07/01/18 01/22/19 Respimat] Calcium Carbonate [Calcium] 600 mg PO BID 01/22/19 01/22/19 Cyanocobalamin (Vitamin B-12) 1,000 mcg PO DAILY 01/22/19 01/22/19 [Vitamin B12] Oxygen 2.5 - 3.5 l IH DAILY 01/22/19 01/22/19 Regorafenib [Stivarga] 40 tab PO DAILY 01/22/19 01/22/19 Previous Rx's Medication Instructions Recorded Loratadine [Allergy Relief] 1 tab PO DAILY #30 tablet 12/23/18 Hydrocortisone 2.5% CREAM [Cortaid] 1 appl TP TID PRN 15 Days #1 tube 01/03/19 Allergies Allergy/AdvReac Type Severity Reaction Status Date / Time metronidazole [From Flagyl] Allergy Rash Verified 01/20/19 14:03 acetaminophen [From Percocet] AdvReac Vomiting Verified 01/20/19 14:03 oxycodone [From Percocet] AdvReac Vomiting Verified 01/20/19 14:03 Review of Systems: Cardiovascular: Denies: chest pain Respiratory: Denies: dyspnea Gastrointestinal: Denies: abdominal pain, nausea, vomiting Musculoskeletal: Denies: back pain, neck pain Neurological: Denies: headache, weakness, numbness, paresthesias All systems ED: reviewed and negative except as stated. Review of Systems: As Per HPI Fall PMH - Past Medical History Medical history: Reports: arthritis, cancer, COPD, coronary artery disease, GERD, hypertension, osteoporosis Surgical history: Reports: angioplasty/stent, colectomy, other Psychiatric history: Reports: no psych history - Social History Smoking Status: Never smoker Alcohol use: Reports: none Drug use: Reports: none Physical Exam Constitutional: Patient in moderate distress due to pain, otherwise, alert-and-o riented, engaged to conversation, speech is fluid, answers questions appropriately Neuro: GCS 15, no overt focal neurological deficits Head: Atraumatic, normocephalic Eyes: Pupils equal, round and reactive to light, no scleral icterus, no conjunctival injection Mouth: No lip swelling, perioral cyanosis, drooling, or trismus. Neck: Trachea midline without deviation. Anterior neck is supple without swelling, no overt thyromegaly noted. Chest: Symmetric chest wall rise Heart: Cardiac rhythm and rate are regular with S1 and S2 , no S3 or S4 appreciated, no murmurs, rubs, or clicks. Lungs: Lungs are clear to auscultation bilaterally, without accessory muscle use or prolonged expiratory phase. No wheezes, rhonchi, rales or stridor appreciated. *Abdomen: Abdomen is flat, soft to palpation, normal bowel sounds, no evidence of bruising, surgical incisions, or abnormal mass. No abdominal bruit auscultated. Non-distended, non-rigid, no organomegaly, no ascites appreciated. No pulsatile mass, no tenderness or guarding to palpation in all four quadrants, no rebound Extremities: No evidence of pedal edema, joint swelling or erythema. Pul ses/motor/sensory intact in all 4 extremities. Back exam: No evidence of trauma to the head and neck or back. No tenderness to midline C-spine, thoracic or lumbar, No CVA tenderness. Psychiatric exam: Patient displays a normal affect and mood for the environment. No overt signs of hallucination. Integumentary: warm, dry, intact, normal color. No rash, cyanosis, diaphoresis, erythema, or pallor Musculoskeletal: The left leg is externally rotated and shortened, there is no tenderness to palpation of the greater trochanter, pelvis appears Stable. Course Course Narrative: Patient given fentanyl for the management of pain X-ray shows small neck fracture Spoke with Dr. Wong from orthopedic surgery Patient will be admitted to hospitalist medicine service for pain management with consult to orthopedic surgery for surgical management. Presurgical labs placed Vital Signs Temperature 98.4 F 01/22/19 12:40 Pulse Rate 75 01/22/19 12:40 Respiratory Rate 18 01/22/19 12:40 Blood Pressure 189/74 01/22/19 12:40 O2 Sat by Pulse Oximetry 83 01/22/19 12:40 Temperature 98.4 F 01/22/19 12:40 Pulse Rate 75 01/22/19 12:40 Respiratory Rate 18 01/22/19 12:40 Blood Pressure 189/74 01/22/19 12:40 O2 Sat by Pulse Oximetry 94 01/22/19 12:47 Oxygen Delivery Oxygen Delivery Room Air Fall - Lab Data Result diagrams: 01/22/19 13:39 01/22/19 13:39 Attestation Statement - Attestation Attestation: I, Rock Lambert, examined this patient and my medical decision-making was reviewed with the METAL FLOW COORDINATOR/PA/Advanced Practice Nurse/Resident Physician. I agree with the documented findings, disposition and treatment plan as described except to the extent set forth below. 83-year-old female presents emergency Department after a mechanical fall. Patient states she was trying to hang something up and cause him when she fell backwards onto her buttocks. She denies hitting her head or having loss of consciousness. X-ray of the pelvis shows from oral neck fracture. She is answering questions appropriately in the emergency department. Denied chest pain or shortness breath or palpitations or other concurrent symptoms. Pulses are equal in bilateral lower extremity. Patient was given 2 doses of IV pain medication emergency department without significant improvement. I spoke with the orthopedic physician who is comfortable with us performing a left femoral nerve block. Patient will likely receive surgery in the morning. Femoral Nerve Block Procedure Note Procedure: Ultrasound-guided nerve block of the femoral nerve Diagnosis: Hip fracture Informed consent: Verbal and written consent obtained after discussion of risks and benefits. Time out performed prior to procedure. I verified the correct patient, correct procedure, correct position, David site, and available equipment. The site was marked. Anesthesia 1% lidocaine without epinephrine and 0.5 bupivacaine Indication: Patient requires nerve block for pain control. Description of procedure: [place] precautions were observed and the procedure was performed in a sterile fashion. The patient and the ultrasound were cleansed and prepped in a sterile fashion. The target nerve was visualized in both the long and short axis on bedside ultrasound. The surrounding area was imaged to identify overlying or adjacent vessels. The needle was visualized approaching the target nerve during the procedure. The foot physician of the anesthetic was monitored under direct ultrasound visualization. The entire procedure was performed under sterile precautions. The patient tolerated the procedure well with no complications. Conclusion: The patient underwent a successful ultrasound-guided nerve block. This procedure was performed by the resident and myself and I was present during the entire procedure.
[2019-01-22 13:49] LABS: Basophils % 0.2 %; Eosinophils # 0.1 K/mcL (0.0-0.6); Hemoglobin 10.5 g/dL (11.5-15.4); Immature Granulocytes % 0.6 % (0-4); Lymphocytes # 0.5 K/mcL (0.6-4.6); Lymphocytes % 4.3 %; Mean Corpuscular Hemoglobin 24.9 pg (28.0-33.3); Mean Corpuscular Volume 82.9 fL (83.0-100.0); Mean Platelet Volume 9.2 fL (9.4-12.4); Monocytes # 0.6 K/mcL (0.0-1.3); Monocytes % 4.7 %; Neutrophils # 11.3 K/mcL (1.6-8.9); Platelet Count 262 K/mcL (140-400); Red Blood Count 4.22 M/mcL (3.82-4.97); Red Cell Distribution Width 17.4 % (11.5-14.5); Segmented Neutrophils % 89.2 %
[2019-01-22 14:00] LABS: Prothrombin Time 11.4 Seconds (9.4-12.1)
[2019-01-22 14:03] LABS: Activated Partial Thrombo Time 27.5 Seconds (26.0-36.0)
[2019-01-22 14:51] LABS: BUN/Creatinine Ratio 19 (6-26); Blood Urea Nitrogen 8 mg/dL (8-23); Calcium 9.3 mg/dL (8.6-10.3); Carbon Dioxide 24 mEq/L (23-29); Chloride 102 mEq/L (98-107); Glucose 99 mg/dL (70-105); Osmolality,Calculated 284 (280-300); Potassium 3.9 mEq/L (3.5-5.1); Sodium 138 mEq/L (136-145); eGFR For Non-African Americans > 60 (> 60)
[2019-01-22 15:16] LABS: Bilirubin,Urine Negative (Negative); Blood,Urine Negative (Negative); Clarity,Urine Clear (Clear); Color,Urine Yellow (Yellow); Glucose,Urine (UA) Normal (Normal); Ketones,Urine Negative (Negative); Leukocyte Esterase,Urine Negative (Negative); Nitrite,Urine Negative (Negative); PH,Urine 7.5 pH Units (5.0-8.0); Protein,Urine Negative (Neg-Trace); Specific Gravity,Urine 1.008 (1.010-1.025); Urobilinogen,Urine Normal (Normal)
--- NOTE | 2019-01-22 15:44 | Orthopedic Consult Note ---
Date of Encounter: 01/22/19 Time of Encounter: 15:42 Assessment and Plan (1) Femur fracture, left Current Visit: Yes Status: Acute Qualifiers: Encounter type: initial encounter Femur location: unspecified portion of femur Fracture type: closed Fracture morphology: unspecified fracture morphology Qualified Code(s): S72.92XA - Unspecified fracture of left femur, initial encounter for closed fracture (2) Pain in left hip Current Visit: Yes Status: Acute (3) Fall Current Visit: Yes Status: Acute Qualifiers: Encounter type: initial encounter Qualified Code(s): W19.XXXA - Unspecified fall, initial encounter History of Present Illness Chief complaint: left hip fracture HPI: Ms. Kirby is a 83 year old female presenting after mechanical fall. Denies LOC. Presents to ED via EMS from home. Spouse at bedside. Patient has history of osteoporosis with previous fractures per spouse. Patient lying on cot writhing in pain. Patient crying out stating her left hip is hurting her. A&O x 3 Left hip with gross deformity on visual exam. No ecchymosis or skin disruption noted Tender to palpation to anterior and lateral hip No calf tenderness bilaterally Foot and ankle motion intact bilaterally Neurovascularly intact bilaterally Xrays reviewed revealing: XR/XR hip complete LT IMPRESSION: Acute left hip fracture which appears to be a low femoral neck-high inter trochanteric fracture. Subtle fracture through the greater trochanter is noted in the AP projection. Moderate angulation and impaction is present. D/ / Dmitri Dominguez MD / Dmitri Dominguez MD Case discussed with Dr. Wong Patient scheduled for left hip open reduction intramedullary nail fixation tomorrow by Dr. Wong Informed consent reviewed with patient and spouse who are agreeable to surgical intervention. After review of risks and benefits, informed consent obtained. Nonweightbearing left lower extremity No hip motion NPO midnight tonight Thank you for this consultation. Please reach out with any questions or concerns. Past Med Surg Social Fam HX - Past Medical History Medical history: arthritis, cancer, COPD, coronary artery disease, GERD, hyperlipidemia, hypertension, osteoporosis Additional medical history: COLON CANCER SPREAD TO LIVER, LUNG AND LYMPH NODES Psychiatric history: anxiety, depression - Past Surgical History Surgical History: angioplasty/stent, colectomy, other Additional surgical history: aport placement and removal - Social History Smoking Status: Never smoker Smokeless Tobacco Status: No Alcohol use: none Drug use: none - Family History Father Adopted: No Family Member Ethnicity: Non- Living Status: Hx Family Cardiac Disorders: Yes Hx Family Respiratory Disorders: No Hx Family Cancer: No Hx Family GI Disorders: No Hx Family Endocrine Disorder: No Hx Family Neuromuscular Disorders: No Hx Family Neurologic Disorders: No Hx Family HEENT Disorders: No Hx Family Autoimmune Disorders: No Medications and Allergies Aspirin Enteric Coated [Aspirin EC] 81 mg PO DAILY 04/15/15 [History] Tiotropium [place] [Spiriva Respimat] 2 puff PO DAILY 07/01/18 [History] Loratadine [Allergy Relief] 1 tab PO DAILY #30 tablet 12/23/18 [Rx] Hydrocortisone 2.5% CREAM [Cortaid] 1 appl TP TID PRN 15 Days #1 tube 01/03/19 [Rx] Calcium Carbonate [Calcium] 600 mg PO BID 01/22/19 [History] Cyanocobalamin (Vitamin B-12) [Vitamin B12] 1,000 mcg PO DAILY 01/22/19 [History] Oxygen 2.5 - 3.5 l IH DAILY 01/22/19 [History] Regorafenib [Stivarga] 40 tab PO DAILY 01/22/19 [History] Allergy/AdvReac Type Severity Reaction Status Date / Time metronidazole [From Flagyl] Allergy Rash Verified 01/20/19 14:03 acetaminophen [From Percocet] AdvReac Vomiting Verified 01/20/19 14:03 oxycodone [From Percocet] AdvReac Vomiting Verified 01/20/19 14:03 All Systems Reviewed: The remainder of the systems were reviewed and are negative Physical Exam - Constitutional Vitals: Temp Pulse Resp BP Pulse Ox 98.4 F 78 16 174/78 96 01/22/19 12:40 01/22/19 14:44 01/22/19 14:44 01/22/19 14:44 01/22/19 14:44 Results - Labs Result Diagrams: 01/23/19 05:07 01/22/19 13:39 Labs: Abnormal lab results WBC 12.7 K/mcL (4.3-11.1) H 01/22/19 13:39 Hgb 10.5 g/dL (11.5-15.4) L 01/22/19 13:39 Hct 35.0 % (35.3-44.9) L 01/22/19 13:39 MCV 82.9 fL (83.0-100.0) L 01/22/19 13:39 MCH 24.9 pg (28.0-33.3) L 01/22/19 13:39 MCHC 30.0 g/dL (31.6-35.5) L 01/22/19 13:39 RDW 17.4 % (11.5-14.5) H 01/22/19 13:39 MPV 9.2 fL (9.4-12.4) L 01/22/19 13:39 11.3 K/mcL (1.6-8.9) H 01/22/19 13:39 0.5 K/mcL (0.6-4.6) L 01/22/19 13:39 0.42 mg/dL (0.60-1.20) L 01/22/19 13:39 Ur Specific [place] 1.008 (1.010-1.025) L 01/22/19 Unknown H & H 01/22/19 Range/Units 13:39 Hgb 10.5 L (11.5-15.4) g/dL Hct 35.0 L (35.3-44.9) % All other labs normal. Consult Discharge Plan - Plan Referrals: NONE,PCP [Primary Care Provider] -
--- NOTE | 2019-01-22 15:55 | Internal Med History&Physical ---
Date of Encounter: 01/22/19 Time of Encounter: 15:55 Internal Medicine - H&P: HPI History of present illness: 83-year-old female with past medical history of colon cancer and left femur/humerus fracture after a fall in [address] Wong who presented to the ER with severe left groin pain 10 out of 10 that started after she experienced mechanical fall at home today. The patient denies striking hitting her head, or any other injury during the fall. The patient was evaluated by the ER staff and imaging studies revealed acute low femoral neck-high inter trochanteric fracture with 15 degrees varus angulation and up to 2 cm of impaction of the femoral neck into the inter trochanteric region. Ortho was consulted and the patient was admitted for further evaluation. Past Med Surg Social Fam HX - Past Medical History Medical history: arthritis, cancer, COPD, coronary artery disease, GERD, hyperl ipidemia, hypertension, osteoporosis Additional medical history: COLON CANCER SPREAD TO LIVER, LUNG AND LYMPH NODES Psychiatric history: anxiety, depression - Past Surgical History Surgical History: angioplasty/stent, colectomy, other Additional surgical history: aport placement and removal - Social History Smoking Status: Never smoker Smokeless Tobacco Status: No Alcohol use: none Drug use: none - Family History Father Adopted: No Family Member Ethnicity: Non- Living Status: Hx Family Cardiac Disorders: Yes Hx Family Respiratory Disorders: No Hx Family Cancer: No Hx Family GI Disorders: No Hx Family Endocrine Disorder: No Hx Family Neuromuscular Disorders: No Hx Family Neurologic Disorders: No Hx Family HEENT Disorders: No Hx Family Autoimmune Disorders: No Internal Medicine - H&P: Meds Aspirin Enteric Coated [Aspirin EC] 81 mg PO DAILY 04/15/15 [History] Tiotropium [place] [Spiriva Respimat] 2 puff PO DAILY 07/01/18 [History] Loratadine [Allergy Relief] 1 tab PO DAILY #30 tablet 12/23/18 [Rx] Hydrocortisone 2.5% CREAM [Cortaid] 1 appl TP TID PRN 15 Days #1 tube 01/03/19 [Rx] Calcium Carbonate [Calcium] 600 mg PO BID 01/22/19 [History] Cyanocobalamin (Vitamin B-12) [Vitamin B12] 1,000 mcg PO DAILY 01/22/19 [History] Oxygen 2.5 - 3.5 l IH DAILY 01/22/19 [History] Regorafenib [Stivarga] 40 tab PO DAILY 01/22/19 [History] Allergy/AdvReac Type Severity Reaction Status Date / Time metronidazole [From Flagyl] Allergy Rash Verified 01/20/19 14:03 acetaminophen [From Percocet] AdvReac Vomiting Verified 01/20/19 14:03 oxycodone [From Percocet] AdvReac Vomiting Verified 01/20/19 14:03 All Systems PM: A 10-system review of systems was performed and is negative for pertinent findings except as documented above in the HPI. - Constitutional Constitutional: no chills, no fever(s), no night sweats - Cardiovascular Cardiovascular ROS IM: no chest pain, no diaphoresis, no dyspnea, no lightheadedness, no palpitations, no syncope - Respiratory Respiratory: no cough, no dyspnea, no wheezing, no excessive phlegm production - Gastrointestinal Gastrointestinal: no abdominal pain, no diarrhea, no hematemesis, no hematochezia, no melena, no nausea, no vomiting - Musculoskeletal Musculoskeletal ROS IM: limited range of motion Additional comments: left hip pain - Neurological Neurological ROS: no confusion, no convulsions, no focal weakness, no numbness, no tingling, no tremor(s) - Constitutional Vitals: Temp Pulse Resp BP Pulse Ox 98.4 F 78 16 174/78 96 01/22/19 12:40 01/22/19 14:44 01/22/19 14:44 01/22/19 14:44 01/22/19 14:44 Exam: see below - Head Head exam: Present: atraumatic, normocephalic - Neck Neck exam general surgery: Present: supple, trachea midline. Absent: lymphadenopathy - Respiratory Respiratory exam: Present: CTAB. Absent: accessory muscle use, rales, rhonchi, wheezes - Cardiovascular Cardiovascular exam: Present: RRR, +S1, +S2. Absent: diastolic murmur, gallop, rubs, systolic murmur - GI/Abdominal GI/Abdominal exam: Present: normal bowel sounds, soft, no peritoneal signs. Absent: distended, tenderness - Extremities Exam Extremities exam: Present: warm, radial pulses palpable and symmetrical. Absent: calf tenderness, cyanotic, pedal edema Internal Med - H&P Results - Labs CBC & Chem 7: 01/23/19 17:54 01/22/19 13:39 Labs: Short CBC 01/22/19 Range/Units 13:39 WBC 12.7 H (4.3-11.1) K/mcL Hgb 10.5 L (11.5-15.4) g/dL Hct 35.0 L (35.3-44.9) % Plt Count 262 (140-400) K/mcL Neutrophils # 11.3 H (1.6-8.9) K/mcL BMP 01/22/19 13:39 Sodium 138 Potassium 3.9 Chloride 102 Carbon Dioxide 24 BUN 8 Creatinine 0.42 L Glucose 99 Calcium 9.3 Urine 01/22/19 Range/Units Unknown Urine Color Yellow (Yellow) Urine Clarity Clear (Clear) Urine pH 7.5 (5.0-8.0) pH Units Ur Specific [place] 1.008 L (1.010-1.025) Urine Protein Negative (Neg-Trace) mg/dL Urine Glucose (UA) Normal (Normal) mg/dL - Impressions ITS Impressions Hip X-Ray 01/22/19 12:38 IMPRESSION: Acute left hip fracture which appears to be a low femoral neck-high inter trochanteric fracture. Subtle fracture through the greater trochanter is noted in the AP projection. Moderate angulation and impaction is present. D/ / Dmitri Dominguez MD / Dmitri Dominguez MD Interpreting Provider: Dmitri Dominguez MD - Assessment and Plan (1) Femur fracture, left Current Visit: Yes Status: Acute Assessment and plan: Ortho was consulted for further evaluation Qualifiers: Fracture type: closed Fracture morphology: unspecified fracture morphology Fracture healing: with delayed healing Qualified Code(s): S72.302G - Unspecified fracture of shaft of left femur, subsequent encounter for closed fracture with delayed healing (2) CAD (coronary artery disease) Current Visit: No Status: Acute Assessment and plan: We will continue home meds Qualifiers: Coronary Disease-Associated Artery/Lesion type: [place] artery [place] vs. transplanted heart: lime heart Associated angina: without angina Qualified Code(s): I25.10 - Atherosclerotic heart disease of [place] coronary artery without angina pectoris (3) COPD (chronic obstructive pulmonary disease) Current Visit: No Status: Chronic Assessment and plan: We will cont home meds and start PRN inhaler Qualifiers: COPD type: unspecified COPD Qualified Code(s): J44.9 - Chronic obstructive pulmonary disease, unspecified (4) Metastatic colon cancer to liver Current Visit: No Status: Chronic Assessment and plan: On Keytruda as an outpatient (5) Anemia Current Visit: Yes Status: Chronic Assessment and plan: Most likely 2/2 anemia of chronic disease, we will cont to monitor H and H and transfuse for HGB less than 7. Qualifiers: Anemia type: other cause Qualified Code(s): D64.89 - Other specified anemias (6) DVT prophylaxis Current Visit: Yes Status: Acute - Time Spent With Patient Total time spent is greater than 50% in coordination of care (as documented) at patient's floor/unit and/or counseling patient:
[2019-01-22] MEDS ORDERED: Lidocaine -MPF 2% 5 ML VIAL ONE (16:02)
[2019-01-22] MEDS ORDERED: Ondansetron ODT 4 MG TAB.RAPDIS SL PRN (16:03)
[2019-01-22] MEDS ORDERED: Mag Hydrox/Al Hydrox/Simeth 30 ML UDC PO PRN (16:03)
[2019-01-22] MEDS ORDERED: Naloxone 0.4 MG/ML INJ IVP PRN ×2 (16:03)
[2019-01-22 17:02] LABS: Alanine Aminotransferase 11 Units/L (7-52); Albumin 3.2 g/dL (3.5-5.7); Alkaline Phosphatase 124 Units/L (34-104); Aspartate Amino Transferase 13 Units/L (13-39); Bilirubin,Total 0.9 mg/dL (0.3-1.0); Cholesterol 139 mg/dL (< 200); Globulin 3.1 g/dL (2.4-3.5); HDL Cholesterol 35 mg/dL (40-59); LDL Cholesterol,Calculated 87 mg/dL (0-99); Total Protein 6.3 g/dL (6.4-8.9); Triglycerides 86 mg/dL (< 150)
[2019-01-22 18:25] LABS: Hematocrit 35.1 % (35.3-44.9); Hemoglobin 10.7 g/dL (11.5-15.4); Mean Corpuscular HGB Conc 30.5 g/dL (31.6-35.5); Mean Corpuscular Hemoglobin 24.8 pg (28.0-33.3); Mean Corpuscular Volume 81.3 fL (83.0-100.0); Mean Platelet Volume 9.5 fL (9.4-12.4); Platelet Count 271 K/mcL (140-400); Red Blood Count 4.32 M/mcL (3.82-4.97); Red Cell Distribution Width 17.4 % (11.5-14.5)
--- NOTE | 2019-01-22 19:22 | Anesthesia Evaluation PreOp ---
Date of Encounter: 01/22/19 Time of Encounter: 19:20 - Past History Planned Operation: L-Hip TFN Cardiac History: HTN (denies), Hyperlipidemia, Cardiac Stent ( stents x 3 [2 011]) Pulmonary History: COPD (Home O2 - 2.5-3.5L/Min via NC previously at NOC and prn, but Now continuously 02/04) HEEL EMERY BUFFER History: Other (Anxiety/Depression) Other Medical History: Denies Any Significant HX, GERD, Other (Metastatic Colon Ca with mets to Liver/Lungs/Lymph Nodes. Osteoporosis) Anesthesia History: No Prior Anesthetic Complications, Past Anesthesia (Colectomy, A-port placement/removal) Alcohol Use: none Drug use: none Medications and Allergies Aspirin Enteric Coated [Aspirin EC] 81 mg PO DAILY 04/15/15 [History] Tiotropium [place] [Spiriva Respimat] 2 puff PO DAILY 07/01/18 [History] Loratadine [Allergy Relief] 1 tab PO DAILY #30 tablet 12/23/18 [Rx] Hydrocortisone 2.5% CREAM [Cortaid] 1 appl TP TID PRN 15 Days #1 tube 01/03/19 [Rx] Calcium Carbonate [Calcium] 600 mg PO BID 01/22/19 [History] Cyanocobalamin (Vitamin B-12) [Vitamin B12] 1,000 mcg PO DAILY 01/22/19 [History] Oxygen 2.5 - 3.5 l IH DAILY 01/22/19 [History] Regorafenib [Stivarga] 40 tab PO DAILY 01/22/19 [History] Allergy/AdvReac Type Severity Reaction Status Date / Time metronidazole [From Flagyl] Allergy Rash Verified 01/20/19 14:03 acetaminophen [From Percocet] AdvReac Vomiting Verified 01/20/19 14:03 oxycodone [From Percocet] AdvReac Vomiting Verified 01/20/19 14:03 - Meds/Allergy Pre-op Review Medications Reviewed: Yes Allergies Reviewed: Yes Beta Blockers on Current Med List: No Anesthesia Results - Labs 01/22/19 18:10 01/22/19 13:39 Impressions Hip X-Ray 01/22/19 12:38 IMPRESSION: Acute left hip fracture which appears to be a low femoral neck-high inter trochanteric fracture. Subtle fracture through the greater trochanter is noted in the AP projection. Moderate angulation and impaction is present. D/ / Dmitri Dominguez MD / Dmitri Dominguez MD Interpreting Provider: Dmitri Dominguez MD - Imaging EKG: report reviewed (77bpm - Sinus rhythm Ventricular premature complex Leftward axis Possible anteroseptal infarct, age undetermined Nonspecific ST-T changes Electronically Signed On 07-05-2018 15:43:12 EDT by Artem Waite) Additional studies: ECHO 07/06/2017 EV/EV echocardiogram Impressions: LVEF 60-65%. Normal LV chamber size, wall thickness and function. Normal left ventricular diastolic function. Normal right ventricular structure and function. Mild aortic regurgitation. Mild tricuspid regurgitation. Moderate pulmonary hypertension. Left Ventricular Wall Motion: Rest Echo Findings All wall segments showed normal motion. Anesthesia Exam Vital Signs Temp Pulse Resp BP Pulse Ox 01/22/19 18:56 98.3 F 96 16 189/93 90 01/22/19 17:25 98.4 F 76 16 197/79 92 01/22/19 16:08 79 16 151/58 96 01/22/19 14:44 78 16 174/78 96 01/22/19 12:47 94 01/22/19 12:40 98.4 F 75 18 189/74 83 Intake and Output 01/22/19 01/22/19 01/22/19 07:59 15:59 23:59 Output Total 450 / 450 Balance -450 / -450 Output: Catheter 450 / 450 Other: Weight 46.72 kg Patient Weight 01/22/19 23:59 Weight 46.72 kg Height: 4'9" Weight: 103# BMI = 22.3 NPO (# of Hours): MNoc - HEENT Pupil (Motor): Pupils equal, EOMI Mallampati: II Teeth: Missing, Edentulous (upper), Poor dentition Denture Type: Upper: Complete Oral Opening: Greater than 3 - HEEL EMERY BUFFER LOC: Oriented HEEL EMERY BUFFER Motor: Normal RUE, Normal LUE, Normal RLE, Normal LLE, Normal Face HEEL EMERY BUFFER Sensory: Normal: RUE, LUE, RLE, LLE, Face - Cardiac Rhythm: Regular Murmur: None - Pulmonary Breath Sounds: bilateral Clear Respiratory Effort: Symmetrical Anesthesia Assess/Plan ASA Score: 4 (Metastatic Colon Ca, COPD, CAD, GERD, HTN, Chol, Anxiety/Depression) Level of consciousness: Cooperative, Oriented, Tranquil Anesthetic Plan: General Monitoring Plan: Standard Monitors Recovery Plan: PACU Anes Supervising Prov Stmt: Pt seen/evaluated, R&B Discussed, questions answered and consent obtained. Lydia Alberto MD
[2019-01-22] MEDS ORDERED: traMADol 50 MG TABLET PO PRN (21:09)
[2019-01-22] MEDS ORDERED: Ondansetron 4 MG/2 ML VIAL IVP ONE (23:01)
[2019-01-22] MEDS ORDERED: *HR* OxyCODONE/APAP 7.5/325 TABLET PO ONE (23:03)
[2019-01-23] MEDS ORDERED: *HR* FentaNYL (PF) 100 MCG/2 ML VIAL IVP ONE (02:55)
[2019-01-23 05:53] LABS: Basophils # 0.1 K/mcL (0.0-0.2); Basophils % 0.6 %; Eosinophils # 0.1 K/mcL (0.0-0.6); Eosinophils % 1.1 %; Hematocrit 35.1 % (35.3-44.9); Hemoglobin 10.3 g/dL (11.5-15.4); Immature Granulocytes % 0.6 % (0-4); Lymphocytes # 1.1 K/mcL (0.6-4.6); Lymphocytes % 9.9 %; Mean Corpuscular HGB Conc 29.3 g/dL (31.6-35.5); Mean Corpuscular Hemoglobin 24.2 pg (28.0-33.3); Mean Corpuscular Volume 82.6 fL (83.0-100.0); Mean Platelet Volume 9.5 fL (9.4-12.4); Monocytes # 0.9 K/mcL (0.0-1.3); Monocytes % 8.6 %; Neutrophils # 8.6 K/mcL (1.6-8.9); Platelet Count 271 K/mcL (140-400); Red Blood Count 4.25 M/mcL (3.82-4.97); Red Cell Distribution Width 17.9 % (11.5-14.5); Segmented Neutrophils % 79.2 %
[2019-01-23 06:07] LABS: INR 1.1; Prothrombin Time 12.3 Seconds (9.4-12.1)
[2019-01-23 06:10] LABS: Activated Partial Thrombo Time 31.1 Seconds (26.0-36.0)
[2019-01-23 06:12] LABS: Magnesium 1.8 mg/dL (1.6-2.6); Phosphorous 4.6 mg/dL (2.7-4.5)
--- NOTE | 2019-01-23 08:44 | Internal Med Progress Note ---
<Maryana Partida - Last Filed: 01/24/19 00:26> Hospitalist Progress Note - Encounter Date of Encounter: 01/24/19 Time of Encounter: 08:37 - Subjective Interval History: Seen and examined this morning at bedside. Patient is awake and sitting in bed, she reports her back is very itchy--she becomes quite anxious and distressed in regards to this. No overnight events. She denies fevers, chills, chest pain, nausea, difficulty breathing, abdominal pain. - Exam Vitals: Temp Pulse Resp BP Pulse Ox 97.6 F 91 16 169/90 96 01/23/19 07:30 01/23/19 07:30 01/23/19 07:30 01/23/19 07:30 01/23/19 07:30 - Assessment and Plan (1) Hip fracture Current Visit: Yes Status: Acute (2) CAD (coronary artery disease) Current Visit: No Status: Acute Assessment and Plan: ASA 81 mg daily (3) Anemia Current Visit: Yes Status: Chronic Assessment and Plan: Most likely chronic Hgb 10.3 today, this appears to be at her baseline (4) COPD (chronic obstructive pulmonary disease) Current Visit: No Status: Chronic (5) Metastatic colon cancer to liver Current Visit: No Status: Chronic - Time Spent with Patient Total time spent is greater than 50% in coordination of care (as documented) at patient's floor/unit and/or counseling patient: less than 15 minutes Plan of Care Discussed with: patient Internal Medicine: Result - Labs CBC & Chem 7: 01/23/19 17:54 01/22/19 13:39 Labs: Short CBC 01/22/19 01/22/19 01/23/19 Range/Units 13:39 18:10 05:07 WBC 12.7 H 14.5 H 10.9 (4.3-11.1) K/mcL Hgb 10.5 L 10.7 L 10.3 L (11.5-15.4) g/dL Hct 35.0 L 35.1 L 35.1 L (35.3-44.9) % Plt Count 262 271 271 (140-400) K/mcL Neutrophils # 11.3 H 8.6 (1.6-8.9) K/mcL BMP 01/22/19 13:39 Sodium 138 Potassium 3.9 Chloride 102 Carbon Dioxide 24 BUN 8 Creatinine 0.42 L Glucose 99 Calcium 9.3 Liver Function 01/22/19 Range/Units 13:39 Total Bilirubin 0.9 (0.3-1.0) mg/dL AST 13 (13-39) Units/L ALT 11 (7-52) Units/L Alkaline Phosphatase 124 H (34-104) Units/L Albumin 3.2 L (3.5-5.7) g/dL Urine 01/22/19 Range/Units Unknown Urine Color Yellow (Yellow) Urine Clarity Clear (Clear) Urine pH 7.5 (5.0-8.0) pH Units Ur Specific [place] 1.008 L (1.010-1.025) Urine Protein Negative (Neg-Trace) mg/dL Urine Glucose (UA) Normal (Normal) mg/dL - ABG Interpretation ABG results: PT/INR, D-dimer PT 12.3 Seconds (9.4-12.1) H 01/23/19 05:07 - Impressions Impressions Hip X-Ray 01/22/19 12:38 IMPRESSION: Acute left hip fracture which appears to be a low femoral neck-high inter trochanteric fracture. Subtle fracture through the greater trochanter is noted in the AP projection. Moderate angulation and impaction is present. D/ / Dmitri Dominguez MD / Dmitri Dominguez MD Interpreting Provider: Dmitri Dominguez MD Consult Discharge Plan - Plan Referrals: NONE,PCP [Primary Care Provider] - <Jonh Villa - Last Filed: 01/24/19 15:41> Hospitalist Progress Note - Encounter Date of Encounter: 01/23/19 - Exam Exam: General: mild discomfort from hip pain, decent eye contact, elderly and thin Thoracic: Normal breath sounds b/l, no wheezing or crackles Cardio: Normal S1 and S2, regular rate and rhythm Abdomen: Soft, nontender Extremities: Warm, well perfused. DP pulses 2+ b/l. No edema. Skin: Scattered bruises Neuro: Awake, oriented to person and place. Speech fluent - Assessment and Plan (1) Femur fracture, left Current Visit: Yes Status: Acute (2) Metastatic colon cancer to liver Current Visit: No Status: Chronic (3) COPD (chronic obstructive pulmonary disease) Current Visit: No Status: Chronic (4) Anemia Current Visit: Yes Status: Chronic (5) CAD (coronary artery disease) Current Visit: No Status: Acute Internal Medicine: Result - Labs CBC & Chem 7: 01/24/19 05:36 01/24/19 05:36 Labs: Short CBC 01/23/19 01/23/19 Range/Units 05:07 17:54 WBC 10.9 (4.3-11.1) K/mcL Hgb 10.3 L 9.9 L (11.5-15.4) g/dL Hct 35.1 L 34.2 L (35.3-44.9) % Plt Count 271 (140-400) K/mcL Neutrophils # 8.6 (1.6-8.9) K/mcL - ABG Interpretation ABG results: PT/INR, D-dimer PT 12.3 Seconds (9.4-12.1) H 01/23/19 05:07 - Impressions Impressions Hip X-Ray 01/23/19 16:00 IMPRESSION: Fluoroscopy was utilized for the purposes of ORIF of the left proximal femur D/ / Rory Woods MD / Rory Woods MD Interpreting Provider: Rory Woods MD Fluoroscopy 01/23/19 17:18 IMPRESSION: Fluoroscopy was utilized for the purposes of ORIF of the left proximal femur D/ / Rory Woods MD / Rory Woods MD Interpreting Provider: Rory Woods MD Hip X-Ray 01/23/19 17:18 IMPRESSION: Fluoroscopy was utilized for the purposes of ORIF of the left proximal femur D/ / Rory Woods MD / Rory Woods MD Interpreting Provider: Rory Woods MD - Attending Attestation Patient seen and examined independently, including review of objective data including labs. I agree with plan of care as documented above by the resident with the following comments: Admitted yesterday w hip pain after a fall, found on XR to have L hip fracture. To OR today with ortho Dr Wong for planned ORIF. Supportive care with fluids and pain medications. <Maryana Partida - Last Filed: 01/24/19 00:26> (2) CAD (coronary artery disease) Qualifiers: Coronary Disease-Associated Artery/Lesion type: [place] artery [place] vs. transplanted heart: [place] heart Associated angina: without angina Qualified Code(s): I25.10 - Atherosclerotic heart disease of [place] coronary artery without angina pectoris (3) Anemia Qualifiers: Anemia type: other cause (4) COPD (chronic obstructive pulmonary disease) Qualifiers: COPD type: unspecified COPD Qualified Code(s): J44.9 - Chronic obstructive pulmonary disease, unspecified <Jonh Villa - Last Filed: 01/24/19 15:41> (1) Femur fracture, left Qualifiers: Fracture type: closed Fracture morphology: unspecified fracture morphology Fracture healing: with delayed healing Qualified Code(s): S72.302G - Unspecified fracture of shaft of left femur, subsequent encounter for closed fracture with delayed healing (3) COPD (chronic obstructive pulmonary disease) Qualifiers: COPD type: unspecified COPD Qualified Code(s): J44.9 - Chronic obstructive pulmonary disease, unspecified (4) Anemia Qualifiers: Anemia type: other cause Qualified Code(s): D64.89 - Other specified anemias (5) CAD (coronary artery disease) Qualifiers: Coronary Disease-Associated Artery/Lesion type: [place] artery [place] vs. transplanted heart: [place] heart Associated angina: without angina Qualified Code(s): I25.10 - Atherosclerotic heart disease of [place] coronary artery without angina pectoris
[2019-01-23] MEDS ORDERED: REGORAFENIB 40 MG PO SCH (09:00)
[2019-01-23] MEDS ORDERED: Cyanocobalamin (B-12) 1,000 MCG TABLET PO SCH (09:00)
[2019-01-23] MEDS ORDERED: Loratadine 10 MG TABLET PO SCH (09:00)
[2019-01-23] MEDS ORDERED: Tiotropium 18 MCG inhalation IH SCH (10:00)
[2019-01-23] MEDS ORDERED: *HR* HYDROcodone/Acet 5/325 mg TABLET PO PRN (14:40)
[2019-01-23] MEDS ORDERED: Ondansetron 4 MG/2 ML VIAL ONE (15:20)
[2019-01-23] MEDS ORDERED: Dexamethasone 4 MG/ML VIAL ONE (15:20)
[2019-01-23] MEDS ORDERED: Lidocaine -MPF 2% 2 ML VIAL ONE (15:20)
[2019-01-23] MEDS ORDERED: *HR* FentaNYL (PF) 100 MCG/2 ML VIAL ONE (15:20)
[2019-01-23] MEDS ORDERED: *HR* Propofol 200 MG/20 ML VIAL IVP ONE (15:20)
[2019-01-23] MEDS ORDERED: *HR* PHENYLEPHRINE 1,000 MCG/10 ML SYRINGE IVP ONE (17:15)
[2019-01-23] MEDS ORDERED: CEFAZOLIN IVP ONE (17:29)
[2019-01-23] MEDS ORDERED: WATER FOR INJ IVP ONE (17:29)
[2019-01-23] MEDS ORDERED: *HR* Labetalol 20 MG/4 ML SYRINGE IVP PRN (18:37)
[2019-01-23] MEDS ORDERED: *HR* Labetalol 20 MG/4 ML SYRINGE IVP ONE (18:39)
[2019-01-23 18:42] LABS: Hematocrit 34.2 % (35.3-44.9); Hemoglobin 9.9 g/dL (11.5-15.4)
[2019-01-23] MEDS ORDERED: Mag Hydrox/Al Hydrox/Simeth 30 ML UDC PO PRN (18:55)
[2019-01-23] MEDS ORDERED: Ondansetron ODT 4 MG TAB.RAPDIS SL PRN (18:55)
[2019-01-23] MEDS ORDERED: Naloxone 0.4 MG/ML INJ IVP PRN (18:55)
--- NOTE | 2019-01-23 19:06 | Orthopedic Operative Note ---
Date of procedure: 01/23/19 Pre-op diagnosis: Left hip fracture Post-op diagnosis: same Procedure: Procedure: Left hip open reduction intramedullary nail fixation Estimated blood loss: 50 cc Hardware: Metal: Synthes 10 x 130 degrees TFN, helical blade, distal locking bolt Operative procedure: The patient was brought to the operating room and placed on the operating room table. After general anesthesia was administered the well leg was place in the well leg strange and the operative leg was placed in the fracture leg strange. All pressure points were padded appropriately. The operative extremity was prepped and draped in the sterile surgical fashion patient received IV antibiotic prior to skin incision. A standard direct lateral approach was made over the entry point of the greater trochanter, the incision was made through the skin and subcutaneous tissue hemostasis was obtained with Bovie cautery. Using careful sharp dissection the fascia was identified and incised, flouroscopic assistance was used to identify the entry point. The guidepin was placed at the entry point using fluroscopic assistance, it was over reamed with the proximal reamer. The nail was placed through the entry hole, across the fracture site into the distal fragment. the position was confirmed with fluroscopy. A guide pin was placed through the proximal locking guide from the lateral femur through the nail across the fracture site into the femoral head, it was over reamed with the reamer. The helical blade was placed over the guide pin through the nail into the femoral head, locked in place with the proximal locking bolt. Distal locking bolt was placed through the distal locking guide. position of hardware and fracture reduction found to be acceptable with fluroscopic assistance. The wound was irrigated. Fascia was closed with a running #2 PDS suture. The deep tissue was irrigated and closed deep with #1 PDS suture superficially with 0 PDS suture and skin was closed with skin timmy The patient was placed in a sterile dressing The patient was extubated and transferred to the recovery room in stable condition. Anesthesia: GETA Surgeon: Bob Wong Was there an assistant chief engineer present: No Estimated blood loss (cc): 50 Condition: stable Disposition: PACU
--- NOTE | 2019-01-23 22:41 | Anesthesia Evaluation Post Op ---
Date of Encounter: 01/23/19 Time of Encounter: 18:45 - Vital Signs Vital Signs: Vital Signs Temp Pulse Resp BP Pulse Ox 01/23/19 18:52 98.7 F 80 18 154/78 98 01/23/19 18:42 83 18 166/92 97 01/23/19 18:32 84 18 160/79 96 01/23/19 18:22 98.7 F 87 16 161/79 99 01/23/19 18:21 90 16 166/91 98 01/23/19 18:01 77 12 149/76 100 01/23/19 17:51 97.5 F L 78 16 133/63 98 01/23/19 10:41 97.8 F 86 16 132/77 97 01/23/19 07:30 97.6 F 91 16 169/90 96 01/23/19 07:26 16 99 01/23/19 04:03 97.8 F 85 16 178/79 96 01/22/19 23:30 98.1 F 84 16 191/94 91 - Lungs Lungs: Clear Ascult./Percussion - Airway Airway: Non-obstructed - Cardiovascular Baseline Rhythm - Mental Status Mental Status: Alert & Oriented, Answers Appropriately - Pain Pain Scale: 0 Pain Scale used: Numeric (1 - 10) - Nausea Vomiting Nausea Vomiting: Not Present - Hydration Hydration: Ice chips, Love catheter - Discharge PostOp Status: Transfer Patient to floor Anes Supervising Prov Stmt: Pt VSS and has met criteria for discharge to floor. - MD Remy
[2019-01-24 05:54] LABS: Basophils % 0.1 %; Hematocrit 32.4 % (35.3-44.9); Hemoglobin 9.6 g/dL (11.5-15.4); Immature Granulocytes % 0.5 % (0-4); Lymphocytes # 0.5 K/mcL (0.6-4.6); Lymphocytes % 5.9 %; Mean Corpuscular HGB Conc 29.6 g/dL (31.6-35.5); Mean Corpuscular Hemoglobin 24.3 pg (28.0-33.3); Mean Platelet Volume 9.2 fL (9.4-12.4); Monocytes # 0.6 K/mcL (0.0-1.3); Monocytes % 6.3 %; Neutrophils # 7.6 K/mcL (1.6-8.9); Platelet Count 231 K/mcL (140-400); Red Blood Count 3.95 M/mcL (3.82-4.97); Red Cell Distribution Width 17.6 % (11.5-14.5); Segmented Neutrophils % 87.2 %
[2019-01-24 06:16] LABS: BUN/Creatinine Ratio 31 (6-26); Blood Urea Nitrogen 18 mg/dL (8-23); Calcium 8.9 mg/dL (8.6-10.3); Carbon Dioxide 26 mEq/L (23-29); Chloride 101 mEq/L (98-107); Glucose 154 mg/dL (70-105); Osmolality,Calculated 287 (280-300); Potassium 4.5 mEq/L (3.5-5.1); Sodium 136 mEq/L (136-145); eGFR For Non-African Americans > 60 (> 60)
--- NOTE | 2019-01-24 06:27 | Orthopedics Progress Note ---
Date of Encounter: 01/24/19 Time of Encounter: 06:27 Subjective Interval history: Patient was seen this morning doing well without complaints. Afebrile vital signs stable. Operative extremity: Neurovascularly intact Dressing clean dry and intact Calves nontender Assessment and plan: Continue with postoperative care Hematocrit 32 weightbearing as tolerated with walker Objective Vital signs: Vital Signs Temp Pulse Resp BP Pulse Ox 01/24/19 03:37 97.7 F 76 16 167/81 96 01/24/19 03:14 97.7 F 84 16 129/71 100 01/23/19 23:00 97.0 F L 76 16 119/67 99 01/23/19 22:25 74 12 117/67 97 01/23/19 21:25 74 12 117/67 97 01/23/19 21:08 98 01/23/19 20:55 97.4 F L 88 16 107/63 92 01/23/19 20:25 97.4 F L 92 16 109/62 86 01/23/19 20:10 97.8 F 88 16 116/72 94 01/23/19 18:52 98.7 F 80 18 154/78 98 01/23/19 18:42 83 18 166/92 97 01/23/19 18:32 84 18 160/79 96 01/23/19 18:22 98.7 F 87 16 161/79 99 01/23/19 18:21 90 16 166/91 98 01/23/19 18:01 77 12 149/76 100 01/23/19 17:51 97.5 F L 78 16 133/63 98 01/23/19 10:41 97.8 F 86 16 132/77 97 01/23/19 07:30 97.6 F 91 16 169/90 96 01/23/19 07:26 16 99 Intake and Output 01/23/19 01/23/19 01/24/19 15:59 23:59 07:59 Intake Total 0 / 0 100 / 100 Output Total 300 / 425 125 / 425 75 / 75 Balance -300 / -425 -125 / -425 25 / 25 Intake: IV Fluids 100 / 100 Ancef 2,000 MG In 0.9 % Sodium 100 / 100 Chloride 100 ML @ 200 mls/hr IVPB Q8HR FORMERLY [facility], 1928–1983 Rx#:[id number] Oral 0 / 0 Output: Urine 300 / 300 Estimated Blood Loss 50 / 50 Catheter 75 / 75 75 / 75 Other: Meal NPO Percent of Meal Consumed 0% Weight 44.1 kg Blood Glucose* 85 Patient Weight 01/24/19 23:59 Weight 44.1 kg - Labs CBC & BMP: 01/24/19 05:36 01/24/19 05:36 Labs: Abnormal lab results WBC 14.5 K/mcL (4.3-11.1) H 01/22/19 18:10 Hgb 9.6 g/dL (11.5-15.4) L 01/24/19 05:36 Hct 32.4 % (35.3-44.9) L 01/24/19 05:36 MCV 82.0 fL (83.0-100.0) L 01/24/19 05:36 MCH 24.3 pg (28.0-33.3) L 01/24/19 05:36 MCHC 29.6 g/dL (31.6-35.5) L 01/24/19 05:36 RDW 17.6 % (11.5-14.5) H 01/24/19 05:36 MPV 9.2 fL (9.4-12.4) L 01/24/19 05:36 11.3 K/mcL (1.6-8.9) H 01/22/19 13:39 0.5 K/mcL (0.6-4.6) L 01/24/19 05:36 PT 12.3 Seconds (9.4-12.1) H 01/23/19 05:07 0.59 mg/dL (0.60-1.20) L 01/24/19 05:36 31 (6-26) H 01/24/19 05:36 Glucose 154 mg/dL (70-105) H 01/24/19 05:36 POC Glucose 100 mg/dL (70-99) H 01/23/19 07:33 Phosphorus 4.6 mg/dL (2.7-4.5) H 01/23/19 05:07 124 Units/L (34-104) H 01/22/19 13:39 6.3 g/dL (6.4-8.9) L 01/22/19 13:39 3.2 g/dL (3.5-5.7) L 01/22/19 13:39 1.0 (1.1-2.2) L 01/22/19 13:39 35 mg/dL (40-59) L 01/22/19 13:39 Ur Specific [place] 1.008 (1.010-1.025) L 01/22/19 Unknown Consult Discharge Plan - Plan Referrals: NONE,PCP [Primary Care Provider] -
[2019-01-24] MEDS: *HR* HYDROcodone/Acet 5/325 mg TABLET PO PRN ×3 (07:42→22:09)
[2019-01-24] MEDS: Cyanocobalamin (B-12) 1,000 MCG TABLET PO SCH (08:33)
[2019-01-24] MEDS: Aspirin Enteric Coated 81 MG Tablet PO SCH (08:34)
[2019-01-24] MEDS: Loratadine 10 MG TABLET PO SCH (08:34)
--- NOTE | 2019-01-24 08:57 | Internal Med Progress Note ---
<Maryana Partida - Last Filed: 01/24/19 18:05> Hospitalist Progress Note - Encounter Date of Encounter: 01/24/19 Time of Encounter: 08:55 - Subjective Interval History: Seen and examined this morning at bedside. Patient is seated in bedside chair and appears comfortable. She states her surgery yesterday evening went well, pa in has been well controlled. No pain at surgical site. Complained of itching yesterday and it is better today. She denies fevers, chills, nausea, abdominal pain, chest pain, or difficulty breathing. Nursing notes reviewed, no events reported overnight. - Exam Vitals: Temp Pulse Resp BP Pulse Ox 97.9 F 83 16 159/87 95 01/24/19 06:30 01/24/19 06:30 01/24/19 06:30 01/24/19 06:30 01/24/19 06:30 Exam: General: No acute distress,appears comfortable in bedside chair, thin HEENT: normocephalic, EOMI, PERRL, sclera anicteric, moist mucus membranes Neck: Supple Cardio: RRR, no murmurs, +S1/S2, no lower extremity edema Pulm: CTAB, no wheezing, rhonchi, rales. Normal respiratory effort. Abdomen: soft, nontender, active bowel sounds, nondistended Extremities: no cyanosis; surgical site left leg with honeycomb dressing--small amount dried blood visible, no purulence, no erythema Back: normal appearance on inspection Neuro: AAOx3, no focal deficit, mentating well, CN II-XII grossly intact, moves all 4 extremities spontaneously, equal sensation all 4 extremities Skin: clean, dry, intact, no visible rashes Psych: Appropriate mood and affect. Answers questions appropriately. Cooperative with exam - Assessment and Plan (1) Hip fracture Current Visit: Yes Status: Acute Assessment and Plan: Postop day 1 left hip ORIF with Hip XR shows acute left hip fracture of low femoral neckhigh intertrochanteric fracture and fracture through greater trochanter SNF recommended by PT/OT, anticipating discharge sunday Weight-bearing as tolerated with walker Pain control with toradol 50 mg PO TID PRN and norco 5-325 Q6H PRN Xarelto 10mg HS for DVT prophylaxis (2) Anemia Current Visit: Yes Status: Chronic Assessment and Plan: Chronic, baseline appears to be around 10 Hemoglobin 9.6 today No signs or symptoms of bleeding, will continue to monitor (3) CAD (coronary artery disease) Current Visit: Yes Status: Chronic Assessment and Plan: Continue aspirin 81 mg daily (4) COPD (chronic obstructive pulmonary disease) Current Visit: Yes Status: Chronic Assessment and Plan: Continue home med Spiriva (5) Metastatic colon cancer to liver Current Visit: No Status: Chronic Assessment and Plan: Metastases to liver and lung Takes Keytruda as outpatient DVT Prophylaxis: Xarelto 10 mg PO HS, continue this on discharge for total of 30 days Increased risk d/t cancer and post-op period - Time Spent with Patient Total time spent is greater than 50% in coordination of care (as documented) at patient's floor/unit and/or counseling patient: less than 15 minutes Plan of Care Discussed with: patient Internal Medicine: Result - Labs CBC & Chem 7: 01/24/19 05:36 01/24/19 05:36 Labs: Short CBC 01/23/19 01/24/19 Range/Units 17:54 05:36 WBC 8.7 (4.3-11.1) K/mcL Hgb 9.9 L 9.6 L (11.5-15.4) g/dL Hct 34.2 L 32.4 L (35.3-44.9) % Plt Count 231 (140-400) K/mcL Neutrophils # 7.6 (1.6-8.9) K/mcL BMP 01/24/19 05:36 Sodium 136 Potassium 4.5 Chloride 101 Carbon Dioxide 26 BUN 18 Creatinine 0.59 L Glucose 154 H Calcium 8.9 - ABG Interpretation ABG results: PT/INR, D-dimer PT 12.3 Seconds (9.4-12.1) H 01/23/19 05:07 - Impressions Impressions Hip X-Ray 01/23/19 16:00 IMPRESSION: Fluoroscopy was utilized for the purposes of ORIF of the left proximal femur D/ / Rory Woods MD / Rory Woods MD Interpreting Provider: Rory Woods MD Fluoroscopy 01/23/19 17:18 IMPRESSION: Fluoroscopy was utilized for the purposes of ORIF of the left proximal femur D/ / Rory Woods MD / Rory Woods MD Interpreting Provider: Rory Woods MD Hip X-Ray 01/23/19 17:18 IMPRESSION: Fluoroscopy was utilized for the purposes of ORIF of the left proximal femur D/ / Rory Woods MD / Rory Woods MD Interpreting Provider: Rory Woods MD Consult Discharge Plan - Plan Referrals: NONE,PCP [Primary Care Provider] - <Jonh Villa - Last Filed: 01/24/19 18:23> Hospitalist Progress Note - Encounter Date of Encounter: 01/24/19 Internal Medicine: Result - Labs CBC & Chem 7: 01/24/19 05:36 01/24/19 05:36 Labs: Short CBC 01/23/19 01/24/19 Range/Units 17:54 05:36 WBC 8.7 (4.3-11.1) K/mcL Hgb 9.9 L 9.6 L (11.5-15.4) g/dL Hct 34.2 L 32.4 L (35.3-44.9) % Plt Count 231 (140-400) K/mcL Neutrophils # 7.6 (1.6-8.9) K/mcL BMP 01/24/19 05:36 Sodium 136 Potassium 4.5 Chloride 101 Carbon Dioxide 26 BUN 18 Creatinine 0.59 L Glucose 154 H Calcium 8.9 - ABG Interpretation ABG results: PT/INR, D-dimer PT 12.3 Seconds (9.4-12.1) H 01/23/19 05:07 - Impressions Impressions Hip X-Ray 01/23/19 16:00 IMPRESSION: Fluoroscopy was utilized for the purposes of ORIF of the left proximal femur D/ / Rory Woods MD / Rory Woods MD Interpreting Provider: Rory Woods MD Fluoroscopy 01/23/19 17:18 IMPRESSION: Fluoroscopy was utilized for the purposes of ORIF of the left proximal femur D/ / Rory Woods MD / Rory Woods MD Interpreting Provider: Rory Woods MD Hip X-Ray 01/23/19 17:18 IMPRESSION: Fluoroscopy was utilized for the purposes of ORIF of the left proximal femur D/ / Rory Woods MD / Rory Woods MD Interpreting Provider: Rory Woods MD - Attending Attestation Patient seen and examined independently, including review of objective data including labs. I agree with plan of care as documented above by the resident with the following comments: 83 F w L femur fx s/p ORIF 01/[address] Wong, tolerated procedure well. Xarelto 10 x30d for ppx. PT/OT rec SNF placement, SW to arrange. Anticipate discharge on Sunday. <Maryana Partida - Last Filed: 01/24/19 18:05> (1) Hip fracture Qualifiers: Encounter type: initial encounter Fracture type: closed Laterality: left Qualified Code(s): S72.002A - Fracture of unspecified part of neck of left femur, initial encounter for closed fracture (2) Anemia Qualifiers: Anemia type: other cause Qualified Code(s): D64.89 - Other specified anemias (3) CAD (coronary artery disease) Qualifiers: Coronary Disease-Associated Artery/Lesion type: [place] artery [place] vs. transplanted heart: [place] heart Associated angina: without angina Qualified Code(s): I25.10 - Atherosclerotic heart disease of [place] coronary artery without angina pectoris (4) COPD (chronic obstructive pulmonary disease) Qualifiers: COPD type: unspecified COPD Qualified Code(s): J44.9 - Chronic obstructive pulmonary disease, unspecified
[2019-01-24] MEDS ORDERED: REGORAFENIB 40 MG PO SCH (09:00)
[2019-01-24] MEDS: Tiotropium 18 MCG inhalation IH SCH (10:43)
--- NOTE | 2019-01-24 12:18 | Event Note ---
Date of Encounter: 01/24/19 Time of Encounter: 12:05 Date of procedure: 01/23/19 Pre-op diagnosis: Left hip fracture Post-op diagnosis: same Procedure: Left hip open reduction intramedullary nail fixation by Dr. Wong POD#1 Patient seen at bedside. Patient's spouse and two sons at bedside. Patient sitting in chair eating lunch. A&Ox3. No acute distress. Dressing and incision c/d/i No calf tenderness, erythema, or warmth. Neurovascularly intact b/l LE. Labwork, vitals, and medications reviewed. Pain control: Adequate Participating in PT. All questions and concerns addressed. Educated on use of incentive spirometer, ambulation, and hydration. Patient educated on post-operative restrictions and care. Addressed: WBAT. D/C plan: Therapy recommending inpt rehab - awaiting placement, continue with postoperative care
[2019-01-24] MEDS: Sennosides/Docusate Sodium TABLET PO SCH (14:37)
[2019-01-24] MEDS: *HR* Rivaroxaban 10 MG TABLET PO SCH (22:10)
[2019-01-25 06:51] LABS: Basophils % 0.3 %; Eosinophils # 0.2 K/mcL (0.0-0.6); Eosinophils % 2.2 %; Hematocrit 29.6 % (35.3-44.9); Hemoglobin 8.8 g/dL (11.5-15.4); Immature Granulocytes % 0.5 % (0-4); Lymphocytes % 12.5 %; Mean Corpuscular HGB Conc 29.7 g/dL (31.6-35.5); Mean Corpuscular Hemoglobin 24.6 pg (28.0-33.3); Mean Corpuscular Volume 82.9 fL (83.0-100.0); Mean Platelet Volume 9.5 fL (9.4-12.4); Monocytes # 0.8 K/mcL (0.0-1.3); Neutrophils # 5.9 K/mcL (1.6-8.9); Platelet Count 201 K/mcL (140-400); Red Blood Count 3.57 M/mcL (3.82-4.97); Red Cell Distribution Width 17.9 % (11.5-14.5); Segmented Neutrophils % 74.5 %
[2019-01-25 07:05] LABS: BUN/Creatinine Ratio 43 (6-26); Blood Urea Nitrogen 20 mg/dL (8-23); Calcium 8.7 mg/dL (8.6-10.3); Carbon Dioxide 27 mEq/L (23-29); Chloride 102 mEq/L (98-107); Glucose 102 mg/dL (70-105); Osmolality,Calculated 287 (280-300); Potassium 4.3 mEq/L (3.5-5.1); Sodium 137 mEq/L (136-145); eGFR For Non-African Americans > 60 (> 60)
[2019-01-25] MEDS: Tiotropium 18 MCG inhalation IH SCH (07:34)
--- NOTE | 2019-01-25 09:04 | Internal Med Progress Note ---
<Maryana Partida - Last Filed: 01/25/19 15:57> Hospitalist Progress Note - Encounter Date of Encounter: 01/25/19 Time of Encounter: 09:04 - Subjective Interval History: Nursing notes reviewed and no overnight events reported. Patient in good spirits today. Reports some left hip and back pain today, otherwise has no complaints a nd feels well. No chest pain, fevers, chills, nausea, abdominal pain. - Exam Vitals: Temp Pulse Resp BP Pulse Ox 98.0 F 84 16 157/68 93 01/25/19 08:09 01/25/19 08:09 01/25/19 08:09 01/25/19 08:09 01/25/19 08:09 Exam: General: No acute distress,appears comfortable in bedside chair, thin HEENT: normocephalic, EOMI, PERRL, sclera anicteric, moist mucus membranes Neck: Supple Cardio: RRR, no murmurs, +S1/S2, no lower extremity edema Pulm: CTAB, no wheezing, rhonchi, rales. Normal respiratory effort. Abdomen: soft, nontender, active bowel sounds, nondistended Extremities: no cyanosis; surgical site left leg with honeycomb dressing--dried blood visible, no purulence, no surrounding erythema Back: normal appearance on inspection Neuro: AAOx3, no focal deficit, mentating well, CN II-XII grossly intact, moves all 4 extremities spontaneously, equal sensation all 4 extremities Skin: clean, dry, intact, no visible rashes Psych: Appropriate mood and affect. Answers questions appropriately. Cooperative with exam - Assessment and Plan (1) Hip fracture Current Visit: Yes Status: Acute Assessment and Plan: Hip XR shows acute left hip fracture of low femoral neckhigh intertrochanteric fracture and fracture through greater trochanter Status post L hip ORIF with on 01/23 SNF recommended by PT/OT, anticipating discharge sunday Weight-bearing as tolerated with walker Pain control with toradol 50 mg PO TID PRN and norco 5-325 Q6H PRN Xarelto 10mg HS for DVT prophylaxis (2) Anemia Current Visit: Yes Status: Chronic Assessment and Plan: Chronic, baseline appears to be around 10 No signs or symptoms of bleeding, will continue to monitor (3) CAD (coronary artery disease) Current Visit: Yes Status: Chronic Assessment and Plan: Continue aspirin 81 mg daily (4) COPD (chronic obstructive pulmonary disease) Current Visit: Yes Status: Chronic Assessment and Plan: Continue home med Spiriva, supplemental oxygen by nasal cannula (5) Metastatic colon cancer to liver Current Visit: Yes Status: Chronic Assessment and Plan: Metastases to liver and lung Takes Keytruda as outpatient - Time Spent with Patient Total time spent is greater than 50% in coordination of care (as documented) at patient's floor/unit and/or counseling patient: less than 15 minutes Plan of Care Discussed with: patient Internal Medicine: Result - Labs CBC & Chem 7: 01/25/19 06:09 01/25/19 06:09 Labs: Short CBC 01/25/19 Range/Units 06:09 WBC 7.9 (4.3-11.1) K/mcL Hgb 8.8 L (11.5-15.4) g/dL Hct 29.6 L (35.3-44.9) % Plt Count 201 (140-400) K/mcL Neutrophils # 5.9 (1.6-8.9) K/mcL BMP 01/25/19 06:09 Sodium 137 Potassium 4.3 Chloride 102 Carbon Dioxide 27 BUN 20 Creatinine 0.47 L Glucose 102 Calcium 8.7 - ABG Interpretation ABG results: PT/INR, D-dimer PT 12.3 Seconds (9.4-12.1) H 01/23/19 05:07 Consult Discharge Plan - Plan Referrals: NONE,PCP [Primary Care Provider] - <Jonh Villa - Last Filed: 01/25/19 18:01> Hospitalist Progress Note - Encounter Date of Encounter: 01/25/19 Internal Medicine: Result - Labs CBC & Chem 7: 01/25/19 06:09 01/25/19 06:09 - Attending Attestation Patient seen and examined independently, including review of objective data including labs. I agree with plan of care as documented above by the resident with the following comments: 83 F w L femur fx s/p ORIF 01/[address] Wong, tolerated procedure well. Xarelto 10 x30d for ppx. PT/OT rec SNF placement, SW to arrange. Anticipate discharge on Sunday. No interval changes today, continue PT/OT, awaiting placement. <Maryana Partida - Last Filed: 01/25/19 15:57> (1) Hip fracture Qualifiers: Encounter type: initial encounter Fracture type: closed Laterality: left Qualified Code(s): S72.002A - Fracture of unspecified part of neck of left femur, initial encounter for closed fracture (2) Anemia Qualifiers: Anemia type: other cause Qualified Code(s): D64.89 - Other specified anemias (3) CAD (coronary artery disease) Qualifiers: Coronary Disease-Associated Artery/Lesion type: [place] artery [place] vs. transplanted heart: [place] heart Associated angina: without angina Qualified Code(s): I25.10 - Atherosclerotic heart disease of [place] coronary artery without angina pectoris (4) COPD (chronic obstructive pulmonary disease) Qualifiers: COPD type: unspecified COPD Qualified Code(s): J44.9 - Chronic obstructive pulmonary disease, unspecified
[2019-01-25] MEDS: Cyanocobalamin (B-12) 1,000 MCG TABLET PO SCH (09:59)
[2019-01-25] MEDS: Aspirin Enteric Coated 81 MG Tablet PO SCH (09:59)
[2019-01-25] MEDS: *HR* HYDROcodone/Acet 5/325 mg TABLET PO PRN ×2 (09:59→17:31)
[2019-01-25] MEDS: Sennosides/Docusate Sodium TABLET PO SCH (09:59)
[2019-01-25] MEDS: Loratadine 10 MG TABLET PO SCH (10:00)
[2019-01-25] MEDS: traMADol 50 MG TABLET PO PRN (14:20)
[2019-01-25] MEDS ORDERED: MOM Conc 10 ML UD.LIQ PO ONE (17:10)
[2019-01-25] MEDS: *HR* Rivaroxaban 10 MG TABLET PO SCH (20:26)
[2019-01-26 03:25] LABS: Hematocrit 32.4 % (35.3-44.9); Hemoglobin 9.3 g/dL (11.5-15.4); Mean Corpuscular HGB Conc 28.7 g/dL (31.6-35.5); Monocytes % 9.3 %; Segmented Neutrophils % 77.2 %
[2019-01-26 03:26] LABS: Basophils % 0.3 %; Eosinophils # 0.3 K/mcL (0.0-0.6); Lymphocytes # 0.9 K/mcL (0.6-4.6); Lymphocytes % 9.2 %; Mean Corpuscular Hemoglobin 24.3 pg (28.0-33.3); Mean Corpuscular Volume 84.8 fL (83.0-100.0); Mean Platelet Volume 9.3 fL (9.4-12.4); Monocytes # 0.9 K/mcL (0.0-1.3); Nucleated Red Blood Cells 0.2 /100 WBC (0); Platelet Count 232 K/mcL (140-400); Red Blood Count 3.82 M/mcL (3.82-4.97); Red Cell Distribution Width 18.1 % (11.5-14.5)
[2019-01-26 03:30] LABS: Neutrophils # 7.3 K/mcL (1.6-8.9)
[2019-01-26 03:43] LABS: BUN/Creatinine Ratio 44 (6-26); Blood Urea Nitrogen 20 mg/dL (8-23); Carbon Dioxide 33 mEq/L (23-29); Chloride 99 mEq/L (98-107); Glucose 104 mg/dL (70-105); Potassium 4.4 mEq/L (3.5-5.1); Sodium 138 mEq/L (136-145); eGFR For Non-African Americans > 60 (> 60)
[2019-01-26 03:44] LABS: Calcium 8.5 mg/dL (8.6-10.3); Osmolality,Calculated 289 (280-300)
[2019-01-26 03:49] LABS: Platelet Estimate Normal (Normal)
[2019-01-26] MEDS ORDERED: Acetaminophen IV 500 MG/50 ML INFUS..BTL IVPB ONE (07:02)
[2019-01-26] MEDS: Tiotropium 18 MCG inhalation IH SCH (07:30)
--- NOTE | 2019-01-26 08:52 | Internal Med Progress Note ---
<Maryana Partida - Last Filed: 01/26/19 11:54> Hospitalist Progress Note - Encounter Date of Encounter: 01/26/19 Time of Encounter: 08:52 - Subjective Interval History: No events reported overnight by patient, none seen on review of nursing notes. Patient sleeping when I entered the room. Left hip/leg pain is patient's only co mplaint. No chest pain, shortness of breath, fevers, chills, nausea, or abdominal pain. - Exam Vitals: Temp Pulse Resp BP Pulse Ox 98.3 F 72 16 148/77 94 01/26/19 06:50 01/26/19 06:50 01/26/19 07:30 01/26/19 06:50 01/26/19 07:30 Exam: General: No acute distress,appears comfortable in bed, thin HEENT: normocephalic, EOMI, PERRL, sclera anicteric, pink and moist mucus membranes Neck: Supple, demonstrates good ROM Cardio: RRR, no murmurs, +S1/S2, no lower extremity edema Pulm: CTAB, no wheezing, rhonchi, rales; Normal respiratory effort, equal chest rise Abdomen: soft, nontender, active bowel sounds, nondistended Extremities: no cyanosis; surgical site left leg with honeycomb dressing--dried blood visible, no purulence, no surrounding erythema Back: normal appearance on inspection Neuro: AAOx3, no focal deficit, mentating well, CN II-XII grossly intact, moves all 4 extremities spontaneously Skin: clean, dry, intact, no visible rashes Psych: Appropriate mood and affect. Answers questions appropriately. Cooperative with exam - Assessment and Plan (1) Hip fracture Current Visit: Yes Status: Acute (2) Anemia Current Visit: Yes Status: Chronic (3) CAD (coronary artery disease) Current Visit: Yes Status: Chronic (4) COPD (chronic obstructive pulmonary disease) Current Visit: Yes Status: Chronic (5) Metastatic colon cancer to liver Current Visit: Yes Status: Chronic - Summary of Assessment and Plan Summary of Assessment and Plan: (1) Hip fracture Current Visit: Yes Status: Acute Assessment and Plan: Hip XR shows acute left hip fracture of low femoral neckhigh intertrochanteric fracture and fracture through greater trochanter Status post L hip ORIF with on 01/23 Anticipating discharge sunday SNF recommended by PT/OT, social work coordinating Weight-bearing as tolerated with walker, working with PT/OT Pain control with tramadol 50 mg PO TID PRN and norco 5-325 Q6H PRN Xarelto 10mg HS for DVT prophylaxis (2) Anemia Current Visit: Yes Status: Chronic Assessment and Plan: Chronic, baseline appears to be around 10 No signs or symptoms of bleeding, will continue to monitor (3) CAD (coronary artery disease) Current Visit: Yes Status: Chronic Assessment and Plan: Continue aspirin 81 mg daily (4) COPD (chronic obstructive pulmonary disease) Current Visit: Yes Status: Chronic Assessment and Plan: Continue home med Spiriva, supplemental oxygen by nasal cannula (5) Metastatic colon cancer to liver Current Visit: Yes Status: Chronic Assessment and Plan: Metastases to liver and lung Takes Keytruda as outpatient - Time Spent with Patient Total time spent is greater than 50% in coordination of care (as documented) at patient's floor/unit and/or counseling patient: less than 15 minutes Plan of Care Discussed with: patient Internal Medicine: Result - Labs CBC & Chem 7: 01/26/19 02:56 01/26/19 02:56 Labs: Short CBC 01/26/19 Range/Units 02:56 WBC 9.5 (4.3-11.1) K/mcL Hgb 9.3 L (11.5-15.4) g/dL Hct 32.4 L (35.3-44.9) % Plt Count 232 (140-400) K/mcL Neutrophils # 7.3 (1.6-8.9) K/mcL BMP 01/26/19 02:56 Sodium 138 Potassium 4.4 Chloride 99 Carbon Dioxide 33 H BUN 20 Creatinine 0.45 L Glucose 104 Calcium 8.5 L - ABG Interpretation ABG results: PT/INR, D-dimer PT 12.3 Seconds (9.4-12.1) H 01/23/19 05:07 Consult Discharge Plan - Plan Referrals: NONE,PCP [Primary Care Provider] - <Jonh Villa - Last Filed: 01/26/19 15:59> Hospitalist Progress Note - Encounter Date of Encounter: 01/26/19 Internal Medicine: Result - Labs CBC & Chem 7: 01/26/19 02:56 01/26/19 02:56 Labs: Short CBC 01/26/19 Range/Units 02:56 WBC 9.5 (4.3-11.1) K/mcL Hgb 9.3 L (11.5-15.4) g/dL Hct 32.4 L (35.3-44.9) % Plt Count 232 (140-400) K/mcL Neutrophils # 7.3 (1.6-8.9) K/mcL BMP 01/26/19 02:56 Sodium 138 Potassium 4.4 Chloride 99 Carbon Dioxide 33 H BUN 20 Creatinine 0.45 L Glucose 104 Calcium 8.5 L - ABG Interpretation ABG results: PT/INR, D-dimer PT 12.3 Seconds (9.4-12.1) H 01/23/19 05:07 - Attending Attestation Patient seen and examined independently, including review of objective data including labs. I agree with plan of care as documented above by the resident with the following comments: L hip fx s/p ORIF, continues to do well and reports only mild pain today, continue PT/OT and plan d/c to SNF tomorrow <Maryana Partida - Last Filed: 01/26/19 11:54> (1) Hip fracture Qualifiers: Encounter type: initial encounter Fracture type: closed Laterality: left Qualified Code(s): S72.002A - Fracture of unspecified part of neck of left femur, initial encounter for closed fracture (2) Anemia Qualifiers: Anemia type: other cause Qualified Code(s): D64.89 - Other specified anemias (3) CAD (coronary artery disease) Qualifiers: Coronary Disease-Associated Artery/Lesion type: [place] artery [place] vs. transplanted heart: [place] heart Associated angina: without angina Qualified Code(s): I25.10 - Atherosclerotic heart disease of [place] coronary artery without angina pectoris (4) COPD (chronic obstructive pulmonary disease) Qualifiers: COPD type: unspecified COPD Qualified Code(s): J44.9 - Chronic obstructive pulmonary disease, unspecified
[2019-01-26] MEDS: Cyanocobalamin (B-12) 1,000 MCG TABLET PO SCH (09:30)
[2019-01-26] MEDS: Aspirin Enteric Coated 81 MG Tablet PO SCH (09:30)
[2019-01-26] MEDS: Sennosides/Docusate Sodium TABLET PO SCH (09:30)
[2019-01-26] MEDS: Loratadine 10 MG TABLET PO SCH (09:30)
[2019-01-26] MEDS: traMADol 50 MG TABLET PO PRN (17:18)
[2019-01-26] MEDS: *HR* Rivaroxaban 10 MG TABLET PO SCH (20:11)
--- NOTE | 2019-01-27 06:46 | Orthopedics Progress Note ---
Date of Encounter: 01/27/19 Time of Encounter: 06:46 Subjective Interval history: Patient was seen this morning doing well without complaints. Afebrile vital signs stable. Operative extremity: Neurovascularly intact Dressing clean dry and intact [place] nontender Assessment and plan: Continue with postoperative care Stable for discharge Objective Vital signs: Vital Signs Temp Pulse Resp BP Pulse Ox 01/27/19 06:41 97.8 F 91 18 136/77 98 01/27/19 03:25 98.0 F 80 14 153/83 96 01/26/19 23:22 98.1 F 84 16 154/66 93 01/26/19 19:59 98.0 F 85 16 134/72 96 01/26/19 14:37 98 F 83 16 151/73 96 01/26/19 10:07 98.5 F 76 14 144/83 95 01/26/19 10:00 95 01/26/19 07:30 16 94 01/26/19 06:50 98.3 F 72 16 148/77 98 Intake and Output 01/26/19 01/26/19 01/27/19 15:59 23:59 07:59 Intake Total 480 / 730 250 / 730 0 / 0 Output Total 225 / 275 50 / 275 0 / 0 Balance 255 / 455 200 / 455 0 / 0 Intake: IV Fluids 50 / 50 Ofirmev 1,000 mg/100 ml 500 mg 50 / 50 In 50 ml @ 200 mls/hr IVPB ONCE ONE Rx#:[id number] Oral 480 / 680 200 / 680 0 / 0 Output: Urine 225 / 275 50 / 275 0 / 0 Other: Meal Lunch Percent of Meal Consumed 50% Stool Size Moderate Stool Consistency formed Stool Characteristics Normal for Patient Stool Color Brown # Bowel Movements 1 Weight 48.15 kg Patient Weight 01/27/19 23:59 Weight 48.15 kg - Labs CBC & BMP: 01/26/19 02:56 01/26/19 02:56 Labs: Abnormal lab results WBC 14.5 K/mcL (4.3-11.1) H 01/22/19 18:10 RBC 3.57 M/mcL (3.82-4.97) L 01/25/19 06:09 Hgb 9.3 g/dL (11.5-15.4) L 01/26/19 02:56 Hct 32.4 % (35.3-44.9) L 01/26/19 02:56 MCV 82.9 fL (83.0-100.0) L 01/25/19 06:09 MCH 24.3 pg (28.0-33.3) L 01/26/19 02:56 MCHC 28.7 g/dL (31.6-35.5) L 01/26/19 02:56 RDW 18.1 % (11.5-14.5) H 01/26/19 02:56 MPV 9.3 fL (9.4-12.4) L 01/26/19 02:56 11.3 K/mcL (1.6-8.9) H 01/22/19 13:39 0.5 K/mcL (0.6-4.6) L 01/24/19 05:36 Nucleated RBCs/100 WBC 0.2 /100 WBC (0) H 01/26/19 02:56 PT 12.3 Seconds (9.4-12.1) H 01/23/19 05:07 Carbon Dioxide 33 mEq/L (23-29) H 01/26/19 02:56 0.45 mg/dL (0.60-1.20) L 01/26/19 02:56 44 (6-26) H 01/26/19 02:56 Glucose 154 mg/dL (70-105) H 01/24/19 05:36 POC Glucose 100 mg/dL (70-99) H 01/23/19 07:33 Calcium 8.5 mg/dL (8.6-10.3) L 01/26/19 02:56 Phosphorus 4.6 mg/dL (2.7-4.5) H 01/23/19 05:07 124 Units/L (34-104) H 01/22/19 13:39 6.3 g/dL (6.4-8.9) L 01/22/19 13:39 3.2 g/dL (3.5-5.7) L 01/22/19 13:39 1.0 (1.1-2.2) L 01/22/19 13:39 35 mg/dL (40-59) L 01/22/19 13:39 Ur Specific [place] 1.008 (1.010-1.025) L 01/22/19 Unknown Consult Discharge Plan - Plan Referrals: NONE,PCP [Primary Care Provider] -
[2019-01-27] MEDS: Tiotropium 18 MCG inhalation IH SCH (07:50)
[2019-01-27] MEDS: Cyanocobalamin (B-12) 1,000 MCG TABLET PO SCH (08:00)
[2019-01-27] MEDS: Loratadine 10 MG TABLET PO SCH (08:00)
[2019-01-27] MEDS: *HR* HYDROcodone/Acet 5/325 mg TABLET PO PRN (08:00)
[2019-01-27] MEDS: Aspirin Enteric Coated 81 MG Tablet PO SCH (08:00)
[2019-01-27] MEDS: Sennosides/Docusate Sodium TABLET PO SCH (08:00)
--- NOTE | 2019-01-27 08:16 | Event Note ---
Date of Encounter: 01/27/19 Time of Encounter: 08:16 Date of procedure: 01/23/19 Pre-op diagnosis: Left hip fracture Post-op diagnosis: same Procedure: Left hip open reduction intramedullary nail fixation by Dr. Wong POD#4 Patient seen at bedside. Patient sitting in chair eating breakfast. A&Ox3. No acute distress. Dressing and incision c/d/i No calf tenderness, erythema, or warmth. Neurovascularly intact b/l LE. Labwork, vitals, and medications reviewed. Pain control: Adequate Participating in PT. WBAT. All questions and concerns addressed. Educated on use of incentive spirometer, ambulation, and hydration. Patient educated on post-operative restrictions and care. Addressed: WBAT. D/C plan: Therapy recommending inpt rehab - awaiting authorization - Continue with postoperative care
[2019-01-27 11:01] VITALS: BP 139/80
--- NOTE | 2019-01-27 12:02 | Discharge Summary ---
<AllenJonh G - Last Filed: 01/27/19 12:16> Date of Encounter: 01/27/19 Hospital course: Marycarmen Kirby is a pleasant 83 F w hx metastatic colon cancer, COPD, CAD, HTN, osteoporosis, who presented at time of admission w L hip pain after a fall, found on XR to have L IT hip fracture, taken for ORIF on 01/[address] Wong. Tolerated well without complication. Placed on xarelto 10 daily x21d. Weight bearing as tolerated. Discharge to SNF for rehab. - Discharge Medications Prescriptions: New Rivaroxaban [Xarelto] 10 mg PO HS #18 tablet Acetaminophen [Tylenol] 650 mg PO Q6HR PRN #40 tablet PRN Reason: Pain Continued Aspirin Enteric Coated [Aspirin EC] 81 mg PO DAILY Tiotropium [place] [Spiriva Respimat] 2 puff PO DAILY Loratadine [Allergy Relief] 1 tab PO DAILY #30 tablet Hydrocortisone 2.5% CREAM [Cortaid] 1 appl TP TID PRN 15 Days #1 tube PRN Reason: Itching Oxygen 2.5 - 3.5 l IH DAILY Regorafenib [Stivarga] 40 tab PO DAILY Calcium Carbonate [Calcium] 600 mg PO BID Cyanocobalamin (Vitamin B-12) [Vitamin B12] 1,000 mcg PO DAILY Home Medications: Aspirin Enteric Coated [Aspirin EC] 81 mg PO DAILY 04/15/15 [History] Tiotropium [place] [Spiriva Respimat] 2 puff PO DAILY 07/01/18 [History] Loratadine [Allergy Relief] 1 tab PO DAILY #30 tablet 12/23/18 [Rx] Hydrocortisone 2.5% CREAM [Cortaid] 1 appl TP TID PRN 15 Days #1 tube 01/03/19 [Rx] Calcium Carbonate [Calcium] 600 mg PO BID 01/22/19 [History] Cyanocobalamin (Vitamin B-12) [Vitamin B12] 1,000 mcg PO DAILY 01/22/19 [History] Oxygen 2.5 - 3.5 l IH DAILY 01/22/19 [History] Regorafenib [Stivarga] 40 tab PO DAILY 01/22/19 [History] Acetaminophen [Tylenol] 650 mg PO Q6HR PRN #40 tablet 01/27/19 [Rx] Rivaroxaban [Xarelto] 10 mg PO HS #18 tablet 01/27/19 [Rx] Allergies/Adverse Reactions: Allergy/AdvReac Type Severity Reaction Status Date / Time metronidazole [From Flagyl] Allergy Rash Verified 01/20/19 14:03 acetaminophen [From Percocet] AdvReac Vomiting Verified 01/20/19 14:03 oxycodone [From Percocet] AdvReac Vomiting Verified 01/20/19 14:03 Date of admission: 01/22/19 17:45 Primary care physician: PCP NONE Consults: 01/22/19 13:17 Consult to Orthopedic Surgery [CONS] Stat Consulting Provider: Kiran Odmo Reason for Consult: Femoral neck fracture Time Notified: 13:18 Call Completed: Yes 01/23/19 18:55 Consult to Orthopedic Navigator [CONS] [CONS] Routine Consult to Fitting Room Maintenance Mechanic [CONS] Routine Reason for SW Consult: post -op hip fracture RT Post Op Consult [CONS] Routine 01/24/19 06:26 PT [Consult to Physical Therapy] [CONS] Routine Comment: Evaluate, develop and implement POC Reason for Consult: s/p hip sx Does patient have active BEDREST order?: No Is patient medically & hemodynamically stable?: Yes Patient assessed for mobility or mobilized this visit?: Yes 01/24/19 06:27 OT [Consult to Occupational Therapy] [CONS] Routine Comment: Evaluate, develop and implement POC Reason for Consult: hip fx, s/p sx Does patient have active BEDREST order?: No Is patient medically & hemodynamically stable?: Yes Patient assessed for mobility or mobilized this visit?: Yes - Patient Status Disposition: Transfer SNF Condition: Fair Functional capacity at discharge: uses cane/walker Overall status at discharge: patient is progressing back to baseline - Discharge Instructions Follow Up With: Farrah Flores PAC [Physician Hog Confinement System Manager] - 02/07/19 10:00 am (also february 20 at 0900) Bob Wong MD [Partnered Physician] - 03/04/19 9:30 am () Mary Edward MD [Partnered Physician] - 05/07/19 12:40 pm NONE,PCP [Primary Care Provider] - Forms: ED Satisfaction Letter Additional Instructions: Discharge Instructions: Total Hip Replacement Please call [facility] ([phone]), your Primary Care Physician, or report to the Emergency Room if you have any of the following symptoms: Nausea, vomiting, fever greater that 101.5, swelling, chest pain, shortness of breath, increased pain/redness/drainage/odor for your incision site, numbness/tingling, or any other concerning symptoms. ACTIVITY:Weight-bearing as tolerated for 8 weeks with hip dislocation precautions that physical therapy taught you. You may progress as tolerated under the guidance of your physical therapist. You do not need to sleep with a pillow between your legs. You can also seep on the operative side or on your stomach. Incentive Spirometer 10 times an hour. MEDICATIONS: Upon discharge resume your home medications. Take all the medications as prescribed. Take a stool softener if taking narcotic pain medications. Stool softeners are only effective if you drink enough fluids. Drink 6-8 glass of water or fluids a day, unless this is not allowed for another health problem. Despite using stool softeners, if you haven't had a bowel movement in 3 days, please switch to a gentle laxative. Gentle laxatives are sold over the counter. You should have a bowel movement within 24 hours, if not call the office. You will be discharged from the hospital with a prescription for pain medication. You are encouraged to decrease the use of narcotic pain medication as tolerated. Should you require a refill, please call the office. [facility] prescribes narcotic pain medication for only 4-6 weeks after surgery. If you require pain medication beyond this time period, you may be referred to your Primary Care Physician or to the Pain Clinic for further evaluation. Plan ahead for refills on pain medication as many narcotics either need to be picked up at the office or mailed. It is best to call 48-72 hours in advance of needing a prescription refill so you don't run out of medication. To help control the post-operative pain, you may take NSAIDs (Aleve,Advil, Motrin, ibuprofen, naprosyn) or Tylenol as prescribed on the bottle in addition to the pain medication. ANTICOAGULATION (blood thinners): Continue your Aspirin, Lovenox or Coumadin as prescribed to help prevent a blood clot in the leg or in the lungs. As long as your incision remains dry and you tolerate the NSAIDs (Aleve, Advil, Motrin, Ibuprofen, Naprosyn), it is OK to use the NSAIDS while you are taking your anticoagulation medication. Should your incision start to drain, stop the NSAID and contact our office. Common symptoms of blood clot in the legs include: localized pain, swelling, calf tenderness, redness or discoloration of the skin. Blood clot in the lung symptoms include: shortness of breath, rapid pulse, sweating, and chest pain that worsens with deep breathing, coughing up blood, lightheadedness, feelings of anxiety. If you experience any of these symptoms notify your physician immediately, go to the emergency room, or if having trouble breathing, call 911. WOUND CARE: Leave the dressing on for 7 to 10days. You may change the dressing if it is saturated greater than 50%. Do not get the dressing wet at anytime. Wash your hands with antibacterial soap, rinse and dry prior to any wound care. If you have timmy the visiting nurse or rehab facility can remove the stapes 10-14 days after surgery and place steri-strips across the wound. Leave the steri-strips in place until they fall off on their own. You may let water from the shower run on top of the steri-strips. If you do not have a visiting nurse or rehab facility, you will need to return to the office at 10-14 days for the timmy to be removed. If you have itching or redness around the dressing call the office. FOLLOW-UP: Please follow up with your surgeon in the orthopedic clinic in 6 weeks from the day of surgery. If you have timmy that need to be removed, you will need to come back to the office in 10-14 days from the day of surgery. - Diet and Activity Activity: as per physical therapy Diet: advance to your usual diet <Maryana Partida - Last Filed: 01/27/19 19:20> - NOTES TO OUTPATIENT PROVIDER Notes to Outpatient Provider: Patient admitted after mechanical fall and found to have hip fracture on left. Status post open reduction and intramedullary nail fixation on 01/23/19. Orders not resulted at time of discharge: Pending orders 01/22/19 12:42 EKG [ECG 12 lead ECG] [ECG] Stat Date of Encounter: 01/27/19 Time of Encounter: 11:50 - Discharge Diagnosis (1) Hip fracture Priority: Primary Status: Resolved Qualifiers: Encounter type: initial encounter Fracture type: closed Laterality: left Qualified Code(s): S72.002A - Fracture of unspecified part of neck of left femur, initial encounter for closed fracture (2) Anemia Priority: Secondary Status: Chronic Qualifiers: Anemia type: other cause Qualified Code(s): D64.89 - Other specified anemias (3) CAD (coronary artery disease) Priority: Secondary Status: Chronic Qualifiers: Coronary Disease-Associated Artery/Lesion type: [place] artery Pl[place] vs. transplanted heart: [place] heart Associated angina: without angina Qualified Code(s): I25.10 - Atherosclerotic heart disease of [place] coronary artery without angina pectoris (4) COPD (chronic obstructive pulmonary disease) Priority: Secondary Status: Chronic Qualifiers: COPD type: unspecified COPD Qualified Code(s): J44.9 - Chronic obstructive pulmonary disease, unspecified (5) Metastatic colon cancer to liver Priority: Secondary Status: Chronic Hospital course: Ms. Kirby is a 83 year old female with a past medical history of COPD, CAD, GERD hyperlipidemia, hypertension, colon cancer who presented to the emergency department after mechanical fall with a complaint of severe groin pain. Vital signs on presentation were significant for a blood pressure of 189/74. Laboratory results showed a mild leukocytosis 14.5, baseline anemia with hemoglobin 10.7, otherwise unremarkable. X-ray of the hip shows acute left fracture. Orthopedic surgery was consulted for further evaluation and management. On 01/23/19, patient did have successful left hip open reduction and intramedullary nail fixation patient tolerated the procedure well. She did work with physical and occupational therapy who did recommend longterm facility on discharge. She tolerated her entire procedure without complications and will be discharged to [facility] in stable medical condition. She will be discharged on Xarelto 10 mg for DVT prophylaxis. Pain is been well controlled on Tylenol. Labs and vitals have returned/remained at baseline levels. Discharge discussed with: patient, social work, case management - Time Spent with Patient Total time spent providing and/or coordinating discharge services: Date of admission: 01/22/19 17:45 Primary care physician: PCP NONE Consults: 01/22/19 13:17 Consult to Orthopedic Surgery [CONS] Stat Consulting Provider: Kiran Odom Reason for Consult: Femoral neck fracture Time Notified: 13:18 Call Completed: Yes 01/23/19 18:55 Consult to Orthopedic Navigator [CONS] [CONS] Routine Consult to Fitting Room Maintenance Mechanic [CONS] Routine Reason for SW Consult: post -op hip fracture RT Post Op Consult [CONS] Routine 01/24/19 06:26 PT [Consult to Physical Therapy] [CONS] Routine Comment: Evaluate, develop and implement POC Reason for Consult: s/p hip sx Does patient have active BEDREST order?: No Is patient medically & hemodynamically stable?: Yes Patient assessed for mobility or mobilized this visit?: Yes 01/24/19 06:27 OT [Consult to Occupational Therapy] [CONS] Routine Comment: Evaluate, develop and implement POC Reason for Consult: hip fx, s/p sx Does patient have active BEDREST order?: No Is patient medically & hemodynamically stable?: Yes Patient assessed for mobility or mobilized this visit?: Yes Discharging clinician: Maryana Partida Anticipated date of discharge: 01/27/19 - Constitutional Vitals: Temp Pulse Resp BP Pulse Ox 98.1 F 85 16 139/80 96 01/27/19 10:59 01/27/19 10:59 01/27/19 10:59 01/27/19 10:59 01/27/19 10:59 Exam: General: No acute distress,appears comfortable in bed, thin HEENT: normocephalic, EOMI, PERRL, sclera anicteric, pink and moist mucus membranes Neck: Supple, demonstrates good ROM Cardio: RRR, no murmurs, +S1/S2, no lower extremity edema Pulm: CTAB, no wheezing, rhonchi, rales; Normal respiratory effort, equal chest rise Abdomen: soft, nontender, active bowel sounds, nondistended Extremities: no cyanosis; surgical site left leg with honeycomb dressing--dried blood visible, no purulence, no surrounding erythema Back: normal appearance on inspection Neuro: AAOx3, no focal deficit, mentating well, CN II-XII grossly intact, moves all 4 extremities spontaneously Skin: clean, dry, intact, no visible rashes Psych: Appropriate mood and affect. Answers questions appropriately. Cooperative with exam - Patient Status Functional capacity at discharge: uses cane/walker Overall status at discharge: patient is progressing back to baseline - Diet and Activity Activity: as per physical therapy
--- NOTE | 2019-01-27 12:12 | Physician Discharge Referral ---
<Maryana Partida - Last Filed: 01/27/19 12:13> ExtendedCare Referral Info Transfer To: [facility] Provider in Charge after Transfer: PCP Institutional Level of Care: Skilled - Diagnosis (1) Hip fracture Priority: Primary Status: Resolved (2) Anemia Priority: Secondary Status: Chronic (3) CAD (coronary artery disease) Priority: Secondary Status: Chronic (4) COPD (chronic obstructive pulmonary disease) Priority: Secondary Status: Chronic (5) Metastatic colon cancer to liver Priority: Secondary Status: Chronic - Transfer Medications Prescriptions: Acetaminophen [Tylenol] 650 mg PO Q6HR PRN #40 tablet PRN Reason: Pain Rivaroxaban [Xarelto] 10 mg PO HS #18 tablet Home Medications: Aspirin Enteric Coated [Aspirin EC] 81 mg PO DAILY 04/15/15 [History] Tiotropium [place] [Spiriva Respimat] 2 puff PO DAILY 07/01/18 [History] Loratadine [Allergy Relief] 1 tab PO DAILY #30 tablet 12/23/18 [Rx] Hydrocortisone 2.5% CREAM [Cortaid] 1 appl TP TID PRN 15 Days #1 tube 01/03/19 [Rx] Calcium Carbonate [Calcium] 600 mg PO BID 01/22/19 [History] Cyanocobalamin (Vitamin B-12) [Vitamin B12] 1,000 mcg PO DAILY 01/22/19 [History] Oxygen 2.5 - 3.5 l IH DAILY 01/22/19 [History] Regorafenib [Stivarga] 40 tab PO DAILY 01/22/19 [History] Acetaminophen [Tylenol] 650 mg PO Q6HR PRN #40 tablet 01/27/19 [Rx] Rivaroxaban [Xarelto] 10 mg PO HS #18 tablet 01/27/19 [Rx] Allergies/Adverse Reactions: Allergy/AdvReac Type Severity Reaction Status Date / Time metronidazole [From Flagyl] Allergy Rash Verified 01/20/19 14:03 acetaminophen [From Percocet] AdvReac Vomiting Verified 01/20/19 14:03 oxycodone [From Percocet] AdvReac Vomiting Verified 01/20/19 14:03 - Respiratory Orders Smoking Cessation: Smoking cessation has been advised. For more information, call the [place] Tobacco Quit Line at 5-965-AIRO-NOW. CERTIFICATION: I certify that the transfer of the above named patient to an Extended Care Facility is necessary for the continuing treatment of the diagnosis listed. The above information is true and accurate reflection of patient's current condition. Confidential - Redisclosure prohibited without a patient's written consent. <Jonh Villa - Last Filed: 01/27/19 13:22> ExtendedCare Referral Info Provider in Charge after Transfer: PCP Institutional Level of Care: Skilled - Respiratory Orders Oxygen / L per min (2L) Smoking Cessation: Smoking cessation has been advised. For more information, call the [employer] ([employer]) Tobacco Quit Line at 6-241-JCEX-NOW. - Ancillary Orders May use pressure relief devices daily prn, May go on RENETTA w/family/respon democrat w/meds at nurse discretion PRN, May consult with Dentist, Educational Therapist, Automation Application Engineer PRN - Advance Directives Code Status: Full Code - Mobility Orders Ambulate - Rehabiliation Orders Rehab Potential: Good Rehab Orders: Evaluation for Physical Therapy, Evaluation for Occupational Therapy - Treatments Skin tear care topically daily PRN per policy - Diet Orders Cardiac CERTIFICATION: I certify that the transfer of the above named patient to an Extended Care Facility is necessary for the continuing treatment of the diagnosis listed. The above information is true and accurate reflection of patient's current condition. Confidential - Redisclosure prohibited without a patient's written consent.
== END 2019-01-27 13:22 | DRG 481 ==
LOC: EMEROOARM 12:27 → 3BNU 12:27 → SUATTDRO 17:45 → 3NENU 01-23 17:26
PROVIDERS: ADMIT Internal Medicine Nephrology; ATTEND Internal Medicine